=== PATIENT | male | born 1955 | race Caucasian/White ===

== ENCOUNTER 2022-01-04 14:32 | Inpatient (IN) ==
[2022-01-04] MEDS ORDERED: SODIUM CHLORIDE 0.9% 1,000 ML IV STA ×3 (15:17→18:52)
[2022-01-04] MEDS ORDERED: PIPERACILLIN/TAZOBACTAM 3,375 MG in SODIUM CHLORIDE 0.9% 100 ML IV STA (15:20)
[2022-01-04 16:34] LABS: Basophils % 0.3 % (0.0-0.8); Hematocrit 38.5 VOL% (42.0-52.0); Hemoglobin 13.5 GM/DL (14.0-18.0); Immature Granulocytes % 2.4 %; Immature Granulocytes Absolute 0.26 #; Lymphocytes # 0.5 10*3/uL (1.4-4.0); Lymphocytes % 4.8 % (21.2-54.2); Mean Corpuscular HGB Conc 35.1 GM/DL (32-36); Mean Platelet Volume 9.8 FL (9.6-12.0); Monocytes # 0.5 10*3/uL (0.11-0.8); Monocytes % 4.9 % (1.7-12.7); Neutrophils % 87.6 % (38.7-73.9); Platelet Count 276 T/CUMM (130-400); Red Blood Count 4.53 MC/CUMM (3.8-5.5); Red Cell Distribution Width 12.5 % (9.3-17.3)
[2022-01-04 16:55] LABS: Alanine Aminotransferase 20 U/L (16-61); Albumin 2.2 G/DL (3.4-5.0); Alkaline Phosphatase 149 U/L (45-117); Aspartate Amino Transferase 19 U/L (0-37); Blood Urea Nitrogen 8 MG/DL (7-18); Calcium 8.1 MG/DL (8.5-10.1); Carbon Dioxide 21 MMOL/L (21-32); Chloride 92 MMOL/L (98-107); Glucose 464 MG/DL (74-106); Osmolality,Calculated 275.9 MOS/KG (273-304); Potassium 2.7 MMOL/L (3.5-5.1); Sodium 129 MMOL/L (136-145); Total Protein 7.8 G/DL (6.4-8.2)
[2022-01-04 16:56] LABS: Band Neutrophils 11 % (0-10); Lymphocytes 7 % (20-55); Platelet Estimate Normal; Total Cells Counted 100
[2022-01-04 17:21] LABS: Mucus,Urine Occasional /LPF (Occasional); RBC,Urine 1 /HPF (0-4)
[2022-01-04 17:23] LABS: Urine Appearance Clear (Clear); Urine Color Yellow (Yellow)
[2022-01-04 17:24] LABS: Bilirubin,Urine Negative (Negative); Blood, Urine Moderate mg/dL (Negative); Glucose,Urine (UA) >1000 mg/dL (Negative); Ketones,Urine 40 mg/dL (Negative); Nitrite,Urine Negative (Negative); Protein,Urine Negative (Negative)
[2022-01-04 17:29] LABS: Barbiturates Screen,Urine Negative (Negative); Benzodiazepines Screen,Urine Negative (Negative); Cannabinoid Screen,Urine Negative (Negative); Opiate Screen,Urine Negative (Negative); Phencyclidine Screen,Urine Negative (Negative)
[2022-01-04] MEDS ORDERED: INSULIN REGULAR 100 UNIT/ML IV STA ×2 (17:42→18:53)
[2022-01-04 18:03] LABS: Arterial Base Excess iSTAT 0 MMOL/L (-2.5-2.5); Arterial Bicarbonate iSTAT 22.1 MMOL/L (20-26); Arterial O2 Saturation iSTAT 95 % (95-100); Arterial PCO2 iSTAT 29 MM HG (35-48); Arterial PO2 iSTAT 68 MM HG (80-95); Arterial Total CO2 iSTAT 23 MMO/L (23-27); Arterial pH iSTAT 7.497 (7.35-7.45)
[2022-01-04] MEDS ORDERED: POTASSIUM CHLORIDE 20 MEQ TABLET PO STA (18:13)
[2022-01-04] MEDS ORDERED: GLUCAGON 1 MG VIAL IM PRN ×3 (18:16→21:26)
[2022-01-04] MEDS ORDERED: DEXTROSE 50% 25 GM/50 ML VIAL IV PRN (18:16)
[2022-01-04] MEDS ORDERED: DEXTROSE 10% 250 ML BAG IV PRN ×2 (18:32→21:31)
[2022-01-04] MEDS: POTASSIUM CHLORIDE RIDER 10 MEQ/100 ML PREMIX IV PRN ×2 (19:58→22:58)
[2022-01-04] MEDS ORDERED: hydrALAZINE 20 MG/1 ML VIAL IV PRN (21:26)
[2022-01-04] MEDS ORDERED: ONDANSETRON 4 MG/2 ML VIAL IV PRN (21:26)
[2022-01-04] MEDS ORDERED: NICOTINE 21 MG/24 HR PATCH TRANSDERM PRN (21:26)
[2022-01-04] MEDS ORDERED: guaiFENesin/DM ER 600-30 MG TABLET PO PRN (21:26)
[2022-01-04] MEDS ORDERED: diphenhydrAMINE CAP 25 MG CAPSULE PO PRN (21:26)
[2022-01-04] MEDS: INSULIN REGULAR 100 UNIT/ML SUBCUT SCH ×2 (21:28→22:58)
[2022-01-05] MEDS: ZALEPLON 5 MG CAPSULE PO PRN (00:33)
[2022-01-05] MEDS: POTASSIUM CHLORIDE RIDER 10 MEQ/100 ML PREMIX IV PRN ×3 (00:33→04:10)
[2022-01-05] MEDS: PIPERACILLIN/TAZOBACTAM 3,375 MG in SODIUM CHLORIDE 0.9% 100 ML IV SCH ×4 (00:38→23:01)
[2022-01-05] MEDS ORDERED: VANCOMYCIN INJ 1,500 MG in SODIUM CHLORIDE 0.9% 250 ML IV SCH (01:00)
[2022-01-05] MEDS: INSULIN REGULAR 100 UNIT/ML SUBCUT SCH ×6 (02:32→23:04)
[2022-01-05] MEDS: VANCOMYCIN INJ 1,500 MG in SODIUM CHLORIDE 0.9% 500 ML IV SCH ×2 (04:11→15:10)
[2022-01-05 06:04] LABS: Basophils # 0.1 10*3/uL (0.0-0.2); Basophils % 0.6 % (0.0-0.8); Hematocrit 35.2 VOL% (42.0-52.0); Immature Granulocytes % 0.4 %; Immature Granulocytes Absolute 0.04 #; Lymphocytes # 0.6 10*3/uL (1.4-4.0); Lymphocytes % 6.3 % (21.2-54.2); Mean Corpuscular HGB Conc 34.1 GM/DL (32-36); Mean Corpuscular Volume 88.2 FL (87-102); Mean Platelet Volume 9.8 FL (9.6-12.0); Monocytes # 0.4 10*3/uL (0.11-0.8); Monocytes % 4.7 % (1.7-12.7); Platelet Count 245 T/CUMM (130-400); Red Blood Count 3.99 MC/CUMM (3.8-5.5); Red Cell Distribution Width 12.8 % (9.3-17.3)
[2022-01-05 06:27] LABS: Band Neutrophils 13 % (0-10); Lymphocytes 4 % (20-55); Total Cells Counted 100
[2022-01-05 06:29] LABS: Platelet Estimate Normal
[2022-01-05 06:30] LABS: Calcium 7.8 MG/DL (8.5-10.1); Osmolality,Calculated 278.5 MOS/KG (273-304); Risk Ratio 2.75; Thyroid Stimulating Hormone 0.454 uIU/ml (0.358-3.74); VLDL Cholesterol 15.8 MG/DL
[2022-01-05] MEDS: POTASSIUM CHLORIDE 20 MEQ TABLET PO SCH (09:00)
[2022-01-05] MEDS ORDERED: INSULIN GLARGINE 100 UNIT/ML SUBCUT SCH (09:00)
[2022-01-05] MEDS ORDERED: fentaNYL 100 MCG/2 ML VIAL ONE ×3 (09:02→10:31)
[2022-01-05] MEDS ORDERED: propofoL 200 MG/20 ML VIAL IV ONE (09:02)
[2022-01-05] MEDS ORDERED: LIDOCAINE 2% 5 ML VIAL ONE (09:02)
[2022-01-05] MEDS ORDERED: ONDANSETRON 4 MG/2 ML VIAL ONE (09:02)
[2022-01-05] MEDS ORDERED: SEVOFLURANE 1 UNIT/15 MINUTE INH ONE (09:02)
[2022-01-05] MEDS ORDERED: MIDAZOLAM 2 MG/2 ML VIAL ONE (09:02)
[2022-01-05] MEDS ORDERED: LACTATED RINGERS 1,000 ML IV SCH (09:30)
[2022-01-05] MEDS ORDERED: PHENYLEPHRINE 1 MG/10 ML SYRINGE IV ONE ×3 (09:45→10:19)
[2022-01-05] MEDS ORDERED: ePHEDrine 50 MG/ML VIAL ONE (10:02)
[2022-01-05] MEDS ORDERED: SODIUM CHLORIDE 0.9% 1,000 ML IV ONE (10:48)
[2022-01-05] MEDS ORDERED: DEXTROSE 50% 25 GM/50 ML VIAL IV PRN (10:54)
[2022-01-05] MEDS ORDERED: KETOROLAC 15 MG/1 ML VIAL IV PRN (10:54)
[2022-01-05] MEDS ORDERED: diphenhydrAMINE 50 MG/1 ML VIAL IV PRN (11:01)
[2022-01-05] MEDS ORDERED: ONDANSETRON 4 MG/2 ML VIAL IV PRN (11:01)
[2022-01-05] MEDS ORDERED: PROMETHAZINE INJ 25 MG in SODIUM CHLORIDE 0.9% 50 ML IV PRN (11:01)
[2022-01-05] MEDS ORDERED: HYDROmorphone 1 MG/1 ML SYRINGE IV PRN (11:01)
[2022-01-05 11:11] LABS: RBC,Urine 1 /HPF (0-4)
[2022-01-05 11:12] LABS: Bilirubin,Urine Negative (Negative); Blood, Urine Trace mg/dL (Negative); Glucose,Urine (UA) 250 mg/dL (Negative); Ketones,Urine 40 mg/dL (Negative); Nitrite,Urine Negative (Negative); Protein,Urine 30 mg/dL (Negative); Urine Appearance Clear (Clear); Urine Color Yellow (Yellow); Urine pH 6.5 (4.5-8.0)
[2022-01-05] MEDS ORDERED: PROMETHAZINE 25 MG/1 ML VIAL ONE (11:18)
[2022-01-05] MEDS ORDERED: SODIUM CHLORIDE 0.9% 100 ML IV ONE (11:18)
[2022-01-05] MEDS: HYDROmorphone 1 MG/1 ML SYRINGE IV PRN ×2 (11:20→11:25)
[2022-01-05] MEDS ORDERED: POTASSIUM CHLORIDE 20 MEQ TABLET PO ONE (12:00)
[2022-01-05] MEDS: BISACODYL 5 MG TABLET PO SCH (16:18)
[2022-01-05] MEDS: LACTATED RINGERS 1,000 ML IV SCH (16:18)
[2022-01-05] MEDS: PANTOPRAZOLE 40 MG TABLET PO SCH (16:18)
[2022-01-05] MEDS: metFORMIN 500 MG TABLET PO SCH (16:58)
[2022-01-05 18:37] LABS: Bilirubin,Urine Negative (Negative); Blood, Urine Trace mg/dL (Negative); Glucose,Urine (UA) 100 mg/dL (Negative); Ketones,Urine Trace mg/dL (Negative); Nitrite,Urine Negative (Negative); Protein,Urine Negative (Negative); Urine Appearance Clear (Clear); Urine Color Yellow (Yellow); Urine Specific Gravity 1.005 (1.001-1.035); Urine pH 6.5 (4.5-8.0)
[2022-01-05 18:46] LABS: Bacteria,Urine Occasional /HPF (Few); Mucus,Urine Occasional /LPF (Occasional); RBC,Urine 5 /HPF (0-4)
[2022-01-06] MEDS: LACTATED RINGERS 1,000 ML IV SCH ×4 (01:43→23:13)
[2022-01-06] MEDS: VANCOMYCIN INJ 1,500 MG in SODIUM CHLORIDE 0.9% 500 ML IV SCH ×2 (01:44→14:17)
[2022-01-06] MEDS: INSULIN REGULAR 100 UNIT/ML SUBCUT SCH ×5 (02:50→20:45)
[2022-01-06 06:31] LABS: Basophils % 0.2 % (0.0-0.8); Eosinophils % 0.2 % (0.00-10.9); Hematocrit 31.1 VOL% (42.0-52.0); Hemoglobin 10.6 GM/DL (14.0-18.0); Immature Granulocytes % 0.8 %; Immature Granulocytes Absolute 0.08 #; Lymphocytes # 0.7 10*3/uL (1.4-4.0); Lymphocytes % 7.1 % (21.2-54.2); Mean Corpuscular HGB Conc 34.1 GM/DL (32-36); Mean Corpuscular Volume 89.1 FL (87-102); Mean Platelet Volume 9.9 FL (9.6-12.0); Monocytes # 0.3 10*3/uL (0.11-0.8); Monocytes % 3.1 % (1.7-12.7); Neutrophils % 88.6 % (38.7-73.9); Platelet Count 210 T/CUMM (130-400); Red Blood Count 3.49 MC/CUMM (3.8-5.5); Red Cell Distribution Width 13.3 % (9.3-17.3); White Blood Count 9.9 T/CUMM (4-12)
[2022-01-06 06:47] LABS: Osmolality,Calculated 275.8 MOS/KG (273-304); Potassium 2.9 MMOL/L (3.5-5.1)
[2022-01-06 07:00] LABS: Lymphocytes 5 % (20-55); Platelet Estimate Normal; Total Cells Counted 100
[2022-01-06] MEDS ORDERED: POTASSIUM CHLORIDE 20 MEQ TABLET PO ONE ×2 (07:08→10:00)
[2022-01-06] MEDS: POTASSIUM CHLORIDE RIDER 10 MEQ/100 ML PREMIX IV PRN ×3 (07:33→09:46)
[2022-01-06] MEDS ORDERED: ONDANSETRON 4 MG/2 ML VIAL ONE (09:10)
[2022-01-06] MEDS ORDERED: propofoL 200 MG/20 ML VIAL IV ONE (09:10)
[2022-01-06] MEDS ORDERED: MIDAZOLAM 2 MG/2 ML VIAL ONE (09:10)
[2022-01-06] MEDS ORDERED: SEVOFLURANE 1 UNIT/15 MINUTE INH ONE ×3 (09:10→11:10)
[2022-01-06] MEDS ORDERED: LIDOCAINE 2% 5 ML VIAL ONE (09:10)
[2022-01-06] MEDS ORDERED: fentaNYL 100 MCG/2 ML VIAL ONE (09:10)
[2022-01-06] MEDS: POTASSIUM CHLORIDE 20 MEQ TABLET PO SCH (09:30)
[2022-01-06] MEDS: PANTOPRAZOLE 40 MG TABLET PO SCH (09:30)
[2022-01-06] MEDS: BISACODYL 5 MG TABLET PO SCH (09:30)
[2022-01-06] MEDS: INSULIN GLARGINE 100 UNIT/ML SUBCUT SCH ×2 (09:30→14:17)
[2022-01-06] MEDS: PIPERACILLIN/TAZOBACTAM 3,375 MG in SODIUM CHLORIDE 0.9% 100 ML IV SCH ×3 (09:46→23:14)
[2022-01-06] MEDS ORDERED: PHENYLEPHRINE 1 MG/10 ML SYRINGE IV ONE ×4 (10:18→11:10)
[2022-01-06] MEDS: HYDROmorphone 1 MG/1 ML SYRINGE IV PRN ×2 (12:11→17:56)
[2022-01-06] MEDS: metFORMIN 500 MG TABLET PO SCH (16:35)
[2022-01-07] MEDS: VANCOMYCIN INJ 1,500 MG in SODIUM CHLORIDE 0.9% 500 ML IV SCH ×2 (03:26→16:40)
[2022-01-07] MEDS: LACTATED RINGERS 1,000 ML IV SCH ×2 (03:52→12:27)
[2022-01-07] MEDS: HYDROmorphone 1 MG/1 ML SYRINGE IV PRN (03:57)
[2022-01-07 05:29] LABS: Basophils % 0.2 % (0.0-0.8); Eosinophils % 0.2 % (0.00-10.9); Hemoglobin 10.7 GM/DL (14.0-18.0); Lymphocytes # 0.6 10*3/uL (1.4-4.0); Lymphocytes % 6.1 % (21.2-54.2); Mean Corpuscular HGB Conc 33.4 GM/DL (32-36); Mean Corpuscular Volume 89.4 FL (87-102); Mean Platelet Volume 9.7 FL (9.6-12.0); Monocytes # 0.3 10*3/uL (0.11-0.8); Monocytes % 3.1 % (1.7-12.7); Neutrophils % 89.4 % (38.7-73.9); Platelet Count 218 T/CUMM (130-400); Red Blood Count 3.58 MC/CUMM (3.8-5.5); Red Cell Distribution Width 13.3 % (9.3-17.3); White Blood Count 10.5 T/CUMM (4-12)
[2022-01-07 05:47] LABS: Calcium 7.1 MG/DL (8.5-10.1); Osmolality,Calculated 279.5 MOS/KG (273-304); Potassium 3.3 MMOL/L (3.5-5.1)
[2022-01-07 06:28] LABS: Lymphocytes 5 % (20-55); Total Cells Counted 100
[2022-01-07 06:29] LABS: Platelet Estimate Adequate
[2022-01-07] MEDS ORDERED: POTASSIUM CHLORIDE 20 MEQ TABLET PO ONE (07:25)
[2022-01-07] MEDS ORDERED: LIDOCAINE 2% 5 ML VIAL ONE (08:12)
[2022-01-07] MEDS ORDERED: propofoL 200 MG/20 ML VIAL IV ONE (08:12)
[2022-01-07] MEDS ORDERED: SEVOFLURANE 1 UNIT/15 MINUTE INH ONE ×2 (08:12→09:44)
[2022-01-07] MEDS ORDERED: ROCURONIUM 50 MG/5 ML VIAL IV ONE ×2 (08:12→09:23)
[2022-01-07] MEDS ORDERED: KETAMINE 500 MG/10 ML VIAL ONE (08:13)
[2022-01-07] MEDS ORDERED: fentaNYL 100 MCG/2 ML VIAL ONE ×2 (08:13→08:32)
[2022-01-07] MEDS ORDERED: PHENYLEPHRINE 10 MG/1 ML VIAL IV ONE (08:55)
[2022-01-07] MEDS ORDERED: SODIUM CHLORIDE 0.9% 250 ML IV ONE (08:55)
[2022-01-07] MEDS ORDERED: PHENYLEPHRINE 1 MG/10 ML SYRINGE IV ONE (08:55)
[2022-01-07] MEDS ORDERED: ONDANSETRON 4 MG/2 ML VIAL ONE (08:55)
[2022-01-07] MEDS ORDERED: NEOSTIGMINE 10 MG/10 ML VIAL ONE (09:27)
[2022-01-07] MEDS ORDERED: GLYCOPYRROLATE 0.4 MG/2 ML VIAL ONE (09:27)
[2022-01-07] MEDS ORDERED: DEXTROSE 50% 25 GM/50 ML VIAL IV PRN (10:28)
[2022-01-07] MEDS ORDERED: GLUCAGON 1 MG VIAL IM PRN (10:28)
[2022-01-07] MEDS: chlorproMAZINE INJ 25 MG in SODIUM CHLORIDE 0.9% 100 ML IV PRN ×2 (11:51→20:56)
[2022-01-07] MEDS: PANTOPRAZOLE 40 MG TABLET PO SCH (11:52)
[2022-01-07] MEDS: BISACODYL 5 MG TABLET PO SCH (11:52)
[2022-01-07] MEDS: POTASSIUM CHLORIDE 20 MEQ TABLET PO SCH (11:52)
[2022-01-07] MEDS: INSULIN GLARGINE 100 UNIT/ML SUBCUT SCH (11:53)
[2022-01-07] MEDS: PIPERACILLIN/TAZOBACTAM 3,375 MG in SODIUM CHLORIDE 0.9% 100 ML IV SCH ×2 (12:22→18:45)
[2022-01-07] MEDS: INSULIN REGULAR 100 UNIT/ML SUBCUT SCH ×4 (12:27→22:57)
[2022-01-07] MEDS: metFORMIN 500 MG TABLET PO SCH (18:31)
[2022-01-08] MEDS: PIPERACILLIN/TAZOBACTAM 3,375 MG in SODIUM CHLORIDE 0.9% 100 ML IV SCH ×4 (00:18→23:00)
[2022-01-08] MEDS: LACTATED RINGERS 1,000 ML IV SCH ×3 (00:22→13:02)
[2022-01-08] MEDS: VANCOMYCIN INJ 1,500 MG in SODIUM CHLORIDE 0.9% 500 ML IV SCH ×2 (03:54→17:08)
[2022-01-08] MEDS ORDERED: LIDOCAINE 2% 5 ML VIAL ONE (06:42)
[2022-01-08] MEDS ORDERED: SEVOFLURANE 1 UNIT/15 MINUTE INH ONE ×2 (06:42→07:59)
[2022-01-08] MEDS ORDERED: propofoL 200 MG/20 ML VIAL IV ONE (06:42)
[2022-01-08] MEDS ORDERED: MIDAZOLAM 2 MG/2 ML VIAL ONE (06:42)
[2022-01-08] MEDS ORDERED: KETAMINE 500 MG/10 ML VIAL ONE (06:42)
[2022-01-08] MEDS ORDERED: HYDROmorphone 1 MG/1 ML SYRINGE ONE (07:27)
[2022-01-08] MEDS ORDERED: SODIUM CHLORIDE 0.9% 1,000 ML IV ONE (07:51)
[2022-01-08] MEDS ORDERED: ONDANSETRON 4 MG/2 ML VIAL ONE (07:59)
[2022-01-08] MEDS ORDERED: DEXTROSE 50% 25 GM/50 ML VIAL IV PRN (09:04)
[2022-01-08] MEDS ORDERED: GLUCAGON 1 MG VIAL IM PRN (09:04)
[2022-01-08] MEDS: PANTOPRAZOLE 40 MG TABLET PO SCH (09:23)
[2022-01-08] MEDS: BISACODYL 5 MG TABLET PO SCH (09:23)
[2022-01-08] MEDS: POTASSIUM CHLORIDE 20 MEQ TABLET PO SCH (09:23)
[2022-01-08] MEDS: INSULIN REGULAR 100 UNIT/ML SUBCUT SCH ×4 (09:24→20:32)
[2022-01-08] MEDS: INSULIN GLARGINE 100 UNIT/ML SUBCUT SCH (09:24)
[2022-01-08] MEDS ORDERED: MAGNESIUM SULF RIDER 4 GM/100 ML PREMIX IV PRN (10:38)
[2022-01-08] MEDS ORDERED: MAGNESIUM SULF RIDER 2 GM/50 ML PREMIX IV PRN (10:38)
[2022-01-08] MEDS: metFORMIN 500 MG TABLET PO SCH (17:57)
[2022-01-08] MEDS: ZALEPLON 5 MG CAPSULE PO PRN (22:42)
[2022-01-09] MEDS: VANCOMYCIN INJ 1,500 MG in SODIUM CHLORIDE 0.9% 500 ML IV SCH ×3 (03:00→21:35)
[2022-01-09 05:14] LABS: Basophils % 0.2 % (0.0-0.8); Eosinophils # 0.1 10*3/uL (0.0-0.87); Eosinophils % 0.8 % (0.00-10.9); Hematocrit 30.3 VOL% (42.0-52.0); Hemoglobin 10.1 GM/DL (14.0-18.0); Immature Granulocytes % 0.9 %; Lymphocytes # 0.8 10*3/uL (1.4-4.0); Lymphocytes % 7.1 % (21.2-54.2); Mean Corpuscular HGB Conc 33.3 GM/DL (32-36); Mean Corpuscular Volume 90.2 FL (87-102); Mean Platelet Volume 9.6 FL (9.6-12.0); Monocytes # 0.4 10*3/uL (0.11-0.8); Monocytes % 3.8 % (1.7-12.7); Neutrophils % 87.2 % (38.7-73.9); Platelet Count 258 T/CUMM (130-400); Red Blood Count 3.36 MC/CUMM (3.8-5.5); Red Cell Distribution Width 13.8 % (9.3-17.3); White Blood Count 10.7 T/CUMM (4-12)
[2022-01-09 06:11] LABS: Calcium 6.7 MG/DL (8.5-10.1); Osmolality,Calculated 282.1 MOS/KG (273-304); Potassium 2.9 MMOL/L (3.5-5.1)
[2022-01-09] MEDS: LACTATED RINGERS 1,000 ML IV SCH ×2 (07:02→20:01)
[2022-01-09] MEDS ORDERED: MAGNESIUM SULF RIDER 2 GM/50 ML PREMIX IV ONE (07:16)
[2022-01-09] MEDS: POTASSIUM CHLORIDE 20 MEQ TABLET PO SCH (08:57)
[2022-01-09] MEDS: BISACODYL 5 MG TABLET PO SCH (08:57)
[2022-01-09] MEDS: PANTOPRAZOLE 40 MG TABLET PO SCH (08:57)
[2022-01-09] MEDS: INSULIN GLARGINE 100 UNIT/ML SUBCUT SCH (08:57)
[2022-01-09] MEDS: INSULIN REGULAR 100 UNIT/ML SUBCUT SCH ×4 (08:57→21:34)
[2022-01-09] MEDS: PIPERACILLIN/TAZOBACTAM 3,375 MG in SODIUM CHLORIDE 0.9% 100 ML IV SCH ×2 (08:58→17:02)
[2022-01-09] MEDS ORDERED: POTASSIUM CHLORIDE 20 MEQ TABLET PO ONE ×2 (11:00→13:00)
[2022-01-09] MEDS: lisinopriL 20 MG TABLET PO SCH (16:20)
[2022-01-09] MEDS: metFORMIN 500 MG TABLET PO SCH (18:13)
[2022-01-09] MEDS: ZALEPLON 5 MG CAPSULE PO PRN (21:34)
[2022-01-10 06:27] LABS: Basophils % 0.2 % (0.0-0.8); Eosinophils # 0.1 10*3/uL (0.0-0.87); Eosinophils % 0.7 % (0.00-10.9); Hematocrit 32.7 VOL% (42.0-52.0); Hemoglobin 10.8 GM/DL (14.0-18.0); Immature Granulocytes % 0.7 %; Immature Granulocytes Absolute 0.07 #; Lymphocytes # 0.8 10*3/uL (1.4-4.0); Lymphocytes % 7.9 % (21.2-54.2); Mean Corpuscular Volume 90.8 FL (87-102); Mean Platelet Volume 9.8 FL (9.6-12.0); Monocytes # 0.5 10*3/uL (0.11-0.8); Monocytes % 4.9 % (1.7-12.7); Neutrophils % 85.6 % (38.7-73.9); Platelet Count 294 T/CUMM (130-400); Red Cell Distribution Width 13.6 % (9.3-17.3); White Blood Count 10.4 T/CUMM (4-12)
[2022-01-10 06:53] LABS: Calcium 7.1 MG/DL (8.5-10.1); Osmolality,Calculated 284.1 MOS/KG (273-304); Potassium 3.5 MMOL/L (3.5-5.1)
[2022-01-10 06:58] LABS: Albumin 1.3 G/DL (3.4-5.0); Bilirubin,Total 0.5 MG/DL (0.20-1.00); Calcium 7.8 MG/DL (8.5-10.1); Osmolality,Calculated 284.1 MOS/KG (273-304); Potassium 3.4 MMOL/L (3.5-5.1); Total Protein 5.9 G/DL (6.4-8.2)
[2022-01-10] MEDS: INSULIN REGULAR 100 UNIT/ML SUBCUT SCH ×4 (07:17→20:58)
[2022-01-10] MEDS ORDERED: LIDOCAINE 2% 5 ML VIAL ONE (08:27)
[2022-01-10] MEDS ORDERED: SEVOFLURANE 1 UNIT/15 MINUTE INH ONE (08:27)
[2022-01-10] MEDS ORDERED: ONDANSETRON 4 MG/2 ML VIAL ONE (08:27)
[2022-01-10] MEDS ORDERED: MIDAZOLAM 2 MG/2 ML VIAL ONE (08:27)
[2022-01-10] MEDS ORDERED: propofoL 200 MG/20 ML VIAL IV ONE (08:27)
[2022-01-10] MEDS ORDERED: fentaNYL 100 MCG/2 ML VIAL ONE ×2 (08:27→09:14)
[2022-01-10] MEDS ORDERED: PHENYLEPHRINE 1 MG/10 ML SYRINGE IV ONE (09:25)
[2022-01-10] MEDS ORDERED: HYDROmorphone 1 MG/1 ML SYRINGE IV PRN (09:57)
[2022-01-10] MEDS: PIPERACILLIN/TAZOBACTAM 3,375 MG in SODIUM CHLORIDE 0.9% 100 ML IV SCH ×4 (11:28→23:18)
[2022-01-10] MEDS: BISACODYL 5 MG TABLET PO SCH (11:28)
[2022-01-10] MEDS: PANTOPRAZOLE 40 MG TABLET PO SCH (11:29)
[2022-01-10] MEDS: INSULIN GLARGINE 100 UNIT/ML SUBCUT SCH (11:29)
[2022-01-10] MEDS: POTASSIUM CHLORIDE 20 MEQ TABLET PO SCH (11:29)
[2022-01-10] MEDS: lisinopriL 20 MG TABLET PO SCH (11:29)
[2022-01-10] MEDS: VANCOMYCIN INJ 1,500 MG in SODIUM CHLORIDE 0.9% 500 ML IV SCH (15:51)
[2022-01-10] MEDS: metFORMIN 500 MG TABLET PO SCH (17:19)
[2022-01-10] MEDS: ZALEPLON 5 MG CAPSULE PO PRN (20:57)
[2022-01-11 05:03] LABS: Basophils % 0.1 % (0.0-0.8); Eosinophils # 0.1 10*3/uL (0.0-0.87); Eosinophils % 0.7 % (0.00-10.9); Hematocrit 30.1 VOL% (42.0-52.0); Immature Granulocytes % 0.7 %; Immature Granulocytes Absolute 0.08 #; Lymphocytes % 9.7 % (21.2-54.2); Mean Corpuscular HGB Conc 33.2 GM/DL (32-36); Mean Corpuscular Volume 89.6 FL (87-102); Mean Platelet Volume 9.4 FL (9.6-12.0); Monocytes # 0.6 10*3/uL (0.11-0.8); Monocytes % 5.4 % (1.7-12.7); Neutrophils % 83.4 % (38.7-73.9); Platelet Count 334 T/CUMM (130-400); Red Blood Count 3.36 MC/CUMM (3.8-5.5); Red Cell Distribution Width 13.6 % (9.3-17.3); White Blood Count 10.7 T/CUMM (4-12)
[2022-01-11 05:20] LABS: Albumin 1.3 G/DL (3.4-5.0); Bilirubin,Total 0.5 MG/DL (0.20-1.00); Calcium 6.9 MG/DL (8.5-10.1); Osmolality,Calculated 280.3 MOS/KG (273-304); Total Protein 5.9 G/DL (6.4-8.2)
[2022-01-11] MEDS: INSULIN REGULAR 100 UNIT/ML SUBCUT SCH ×4 (07:25→21:23)
[2022-01-11] MEDS ORDERED: MORPHINE 2 MG/1 ML SYRINGE IV ONE ×2 (07:58→08:35)
[2022-01-11] MEDS: SODIUM HYPOCHLORITE 0.25% IRRIG 473 ML BOTTLE TOP SCH (09:05)
[2022-01-11] MEDS: POTASSIUM CHLORIDE 20 MEQ TABLET PO SCH (09:59)
[2022-01-11] MEDS: PIPERACILLIN/TAZOBACTAM 3,375 MG in SODIUM CHLORIDE 0.9% 100 ML IV SCH ×3 (09:59→23:52)
[2022-01-11] MEDS: PANTOPRAZOLE 40 MG TABLET PO SCH (09:59)
[2022-01-11] MEDS: BISACODYL 5 MG TABLET PO SCH (09:59)
[2022-01-11] MEDS: INSULIN GLARGINE 100 UNIT/ML SUBCUT SCH (10:00)
[2022-01-11] MEDS: lisinopriL 20 MG TABLET PO SCH (10:00)
[2022-01-11] MEDS: VANCOMYCIN INJ 1,500 MG in SODIUM CHLORIDE 0.9% 500 ML IV SCH (10:01)
[2022-01-11] MEDS: HYDROmorphone 1 MG/1 ML SYRINGE IV PRN ×3 (14:15→22:42)
[2022-01-11] MEDS: OXYBUTYNIN 5 MG TABLET PO SCH ×2 (16:42→20:03)
[2022-01-11] MEDS: metFORMIN 500 MG TABLET PO SCH (16:43)
[2022-01-11] MEDS: ZALEPLON 5 MG CAPSULE PO PRN (20:03)
[2022-01-11 21:05] LABS: RBC,Urine 1 /HPF (0-4)
[2022-01-11 21:07] LABS: Bilirubin,Urine Negative (Negative); Blood, Urine Trace mg/dL (Negative); Glucose,Urine (UA) Negative (Negative); Ketones,Urine Negative (Negative); Nitrite,Urine Negative (Negative); Protein,Urine Negative (Negative); Urine Appearance Clear (Clear); Urine Color Yellow (Yellow); Urine Specific Gravity <= 1.005 (1.001-1.035); Urine Urobilinogen 0.2 eU/dL (<2.0); Urine pH 6.5 (4.5-8.0)
[2022-01-12] MEDS: HYDROmorphone 1 MG/1 ML SYRINGE IV PRN ×6 (00:55→23:35)
[2022-01-12 04:12] LABS: Basophils % 0.2 % (0.0-0.8); Eosinophils % 0.3 % (0.00-10.9); Hemoglobin 11.2 GM/DL (14.0-18.0); Immature Granulocytes % 0.8 %; Immature Granulocytes Absolute 0.09 #; Lymphocytes # 0.9 10*3/uL (1.4-4.0); Lymphocytes % 7.6 % (21.2-54.2); Mean Corpuscular HGB Conc 32.9 GM/DL (32-36); Mean Corpuscular Volume 89.7 FL (87-102); Mean Platelet Volume 9.2 FL (9.6-12.0); Monocytes # 0.6 10*3/uL (0.11-0.8); Monocytes % 5.3 % (1.7-12.7); Neutrophils % 85.8 % (38.7-73.9); Platelet Count 410 T/CUMM (130-400); Red Blood Count 3.79 MC/CUMM (3.8-5.5); Red Cell Distribution Width 13.7 % (9.3-17.3)
[2022-01-12 04:35] LABS: Osmolality,Calculated 280.4 MOS/KG (273-304); Potassium 3.2 MMOL/L (3.5-5.1)
[2022-01-12] MEDS: INSULIN GLARGINE 100 UNIT/ML SUBCUT SCH (08:27)
[2022-01-12] MEDS: PANTOPRAZOLE 40 MG TABLET PO SCH (08:27)
[2022-01-12] MEDS: lisinopriL 20 MG TABLET PO SCH (08:27)
[2022-01-12] MEDS: BISACODYL 5 MG TABLET PO SCH (08:27)
[2022-01-12] MEDS: POTASSIUM CHLORIDE 20 MEQ TABLET PO SCH (08:27)
[2022-01-12] MEDS: INSULIN REGULAR 100 UNIT/ML SUBCUT SCH ×4 (09:00→20:20)
[2022-01-12] MEDS ORDERED: PHENAZOPYRIDINE 95 MG TABLET PO PRN (09:04)
[2022-01-12] MEDS: OXYBUTYNIN 5 MG TABLET PO SCH ×2 (09:09→16:34)
[2022-01-12] MEDS: ERGOCALCIFEROL 50,000 UNIT CAPSULE PO SCH (09:09)
[2022-01-12] MEDS: PIPERACILLIN/TAZOBACTAM 3,375 MG in SODIUM CHLORIDE 0.9% 100 ML IV SCH (09:10)
[2022-01-12] MEDS: SODIUM HYPOCHLORITE 0.25% IRRIG 473 ML BOTTLE TOP SCH (09:10)
[2022-01-12] MEDS: METHEN/SOD PHOS/METH BLUE/HYOS TABLET PO SCH ×2 (10:55→16:35)
[2022-01-12] MEDS ORDERED: METHEN/SOD PHOS/METH BLUE/HYOS TABLET PO SCH (13:00)
[2022-01-12] MEDS ORDERED: METHEN/SOD PHOS/METH BLUE/HYOS TABLET PO PRN (13:52)
[2022-01-12] MEDS: metFORMIN 500 MG TABLET PO SCH (17:39)
[2022-01-12] MEDS: ZALEPLON 5 MG CAPSULE PO PRN (19:57)
[2022-01-13 04:00] LABS: Basophils % 0.2 % (0.0-0.8); Eosinophils # 0.1 10*3/uL (0.0-0.87); Eosinophils % 0.7 % (0.00-10.9); Hematocrit 30.1 VOL% (42.0-52.0); Hemoglobin 9.8 GM/DL (14.0-18.0); Immature Granulocytes % 0.6 %; Immature Granulocytes Absolute 0.08 #; Lymphocytes # 1.1 10*3/uL (1.4-4.0); Lymphocytes % 8.8 % (21.2-54.2); Mean Corpuscular HGB Conc 32.6 GM/DL (32-36); Mean Corpuscular Volume 90.1 FL (87-102); Mean Platelet Volume 9.1 FL (9.6-12.0); Monocytes # 0.6 10*3/uL (0.11-0.8); Neutrophils % 84.7 % (38.7-73.9); Platelet Count 419 T/CUMM (130-400); Red Blood Count 3.34 MC/CUMM (3.8-5.5); Red Cell Distribution Width 13.8 % (9.3-17.3); White Blood Count 12.6 T/CUMM (4-12)
[2022-01-13 04:16] LABS: Calcium 6.6 MG/DL (8.5-10.1); Osmolality,Calculated 283.8 MOS/KG (273-304)
[2022-01-13] MEDS: INSULIN REGULAR 100 UNIT/ML SUBCUT SCH ×4 (08:22→22:18)
[2022-01-13] MEDS: BISACODYL 5 MG TABLET PO SCH (08:49)
[2022-01-13] MEDS: lisinopriL 20 MG TABLET PO SCH (08:50)
[2022-01-13] MEDS: POTASSIUM CHLORIDE 20 MEQ TABLET PO SCH (08:50)
[2022-01-13] MEDS: HEPARIN 5,000 UNIT/1 ML VIAL SUBCUT SCH (08:50)
[2022-01-13] MEDS: PANTOPRAZOLE 40 MG TABLET PO SCH (08:50)
[2022-01-13] MEDS: INSULIN GLARGINE 100 UNIT/ML SUBCUT SCH (08:50)
[2022-01-13] MEDS: POTASSIUM CHLORIDE RIDER 10 MEQ/100 ML PREMIX IV PRN (08:54)
[2022-01-13] MEDS: SODIUM HYPOCHLORITE 0.25% IRRIG 473 ML BOTTLE TOP SCH (09:00)
[2022-01-13] MEDS: HYDROmorphone 1 MG/1 ML SYRINGE IV PRN ×4 (09:37→22:18)
[2022-01-13] MEDS: PIPERACILLIN/TAZOBACTAM 3,375 MG in SODIUM CHLORIDE 0.9% 100 ML IV SCH ×2 (12:13→22:19)
[2022-01-13] MEDS ORDERED: TUBERCULIN SKIN TEST 0.1 ML SYRINGE INTRADERM ONE (16:00)
[2022-01-13] MEDS: metFORMIN 500 MG TABLET PO SCH (18:31)
[2022-01-13] MEDS: TRIAMCINOLONE 0.1% CREAM 15 GM TUBE TOP SCH ×2 (18:31→22:18)
[2022-01-13] MEDS: ZALEPLON 5 MG CAPSULE PO PRN (23:54)
[2022-01-14] MEDS: PIPERACILLIN/TAZOBACTAM 3,375 MG in SODIUM CHLORIDE 0.9% 100 ML IV SCH ×3 (04:44→20:57)
[2022-01-14 05:40] LABS: Basophils % 0.3 % (0.0-0.8); Eosinophils # 0.1 10*3/uL (0.0-0.87); Eosinophils % 1.1 % (0.00-10.9); Hematocrit 29.9 VOL% (42.0-52.0); Hemoglobin 9.8 GM/DL (14.0-18.0); Immature Granulocytes % 0.8 %; Immature Granulocytes Absolute 0.09 #; Lymphocytes # 1.2 10*3/uL (1.4-4.0); Lymphocytes % 10.9 % (21.2-54.2); Mean Corpuscular HGB Conc 32.8 GM/DL (32-36); Mean Corpuscular Volume 90.9 FL (87-102); Mean Platelet Volume 8.8 FL (9.6-12.0); Monocytes # 0.7 10*3/uL (0.11-0.8); Neutrophils % 80.9 % (38.7-73.9); Platelet Count 363 T/CUMM (130-400); Red Blood Count 3.29 MC/CUMM (3.8-5.5); Red Cell Distribution Width 13.4 % (9.3-17.3); White Blood Count 11.3 T/CUMM (4-12)
[2022-01-14 06:02] LABS: Alanine Aminotransferase 20 U/L (16-61); Albumin 1.4 G/DL (3.4-5.0); Alkaline Phosphatase 276 U/L (45-117); Aspartate Amino Transferase 31 U/L (0-37); Bilirubin,Total < 0.39 MG/DL (0.20-1.00); Blood Urea Nitrogen 8 MG/DL (7-18); Calcium 6.9 MG/DL (8.5-10.1); Carbon Dioxide 25 MMOL/L (21-32); Chloride 109 MMOL/L (98-107); Glucose 138 MG/DL (74-106); Osmolality,Calculated 278.4 MOS/KG (273-304); Potassium 3.2 MMOL/L (3.5-5.1); Sodium 140 MMOL/L (136-145)
[2022-01-14] MEDS: POTASSIUM CHLORIDE RIDER 10 MEQ/100 ML PREMIX IV PRN ×4 (06:16→16:39)
[2022-01-14] MEDS ORDERED: fentaNYL 100 MCG/2 ML VIAL ONE ×2 (07:27→08:19)
[2022-01-14] MEDS ORDERED: propofoL 200 MG/20 ML VIAL IV ONE (07:27)
[2022-01-14] MEDS: INSULIN REGULAR 100 UNIT/ML SUBCUT SCH ×4 (07:27→20:44)
[2022-01-14] MEDS ORDERED: LIDOCAINE 2% 5 ML VIAL ONE (07:27)
[2022-01-14] MEDS ORDERED: MIDAZOLAM 2 MG/2 ML VIAL ONE (07:28)
[2022-01-14] MEDS ORDERED: ONDANSETRON 4 MG/2 ML VIAL ONE (08:07)
[2022-01-14] MEDS ORDERED: PHENYLEPHRINE 1 MG/10 ML SYRINGE IV ONE ×2 (08:07→08:29)
[2022-01-14] MEDS ORDERED: KETAMINE 500 MG/10 ML VIAL ONE (08:19)
[2022-01-14] MEDS ORDERED: ePHEDrine 50 MG/ML VIAL ONE (08:20)
[2022-01-14] MEDS ORDERED: SEVOFLURANE 1 UNIT/15 MINUTE INH ONE (08:24)
[2022-01-14] MEDS: HYDROmorphone 1 MG/1 ML SYRINGE IV PRN ×6 (09:10→20:49)
[2022-01-14] MEDS ORDERED: ONDANSETRON 4 MG/2 ML VIAL IV PRN (09:21)
[2022-01-14] MEDS: INSULIN GLARGINE 100 UNIT/ML SUBCUT SCH (09:49)
[2022-01-14] MEDS: TRIAMCINOLONE 0.1% CREAM 15 GM TUBE TOP SCH ×2 (10:03→20:45)
[2022-01-14] MEDS: SODIUM HYPOCHLORITE 0.25% IRRIG 473 ML BOTTLE TOP SCH (10:03)
[2022-01-14] MEDS: lisinopriL 20 MG TABLET PO SCH (11:16)
[2022-01-14] MEDS: BISACODYL 5 MG TABLET PO SCH (11:17)
[2022-01-14] MEDS: PANTOPRAZOLE 40 MG TABLET PO SCH (11:17)
[2022-01-14] MEDS: POTASSIUM CHLORIDE 20 MEQ TABLET PO SCH (12:29)
[2022-01-14] MEDS: metFORMIN 500 MG TABLET PO SCH (16:12)
[2022-01-14] MEDS: ZALEPLON 5 MG CAPSULE PO PRN (20:45)
[2022-01-14] MEDS: POTASSIUM BICARB EFFERVESCENT 20 MEQ TAB.EFF PO SCH (20:45)
[2022-01-14] MEDS: SERTRALINE 50 MG TABLET PO SCH (20:45)
[2022-01-15] MEDS: HYDROmorphone 1 MG/1 ML SYRINGE IV PRN ×7 (02:29→23:18)
[2022-01-15] MEDS: PIPERACILLIN/TAZOBACTAM 3,375 MG in SODIUM CHLORIDE 0.9% 100 ML IV SCH ×3 (04:46→20:39)
[2022-01-15 05:25] LABS: Basophils % 0.3 % (0.0-0.8); Eosinophils # 0.1 10*3/uL (0.0-0.87); Eosinophils % 0.7 % (0.00-10.9); Hemoglobin 9.4 GM/DL (14.0-18.0); Immature Granulocytes % 0.7 %; Immature Granulocytes Absolute 0.08 #; Lymphocytes # 1.1 10*3/uL (1.4-4.0); Lymphocytes % 9.6 % (21.2-54.2); Mean Corpuscular HGB Conc 32.4 GM/DL (32-36); Mean Corpuscular Volume 91.2 FL (87-102); Monocytes # 0.7 10*3/uL (0.11-0.8); Monocytes % 6.2 % (1.7-12.7); Neutrophils % 82.5 % (38.7-73.9); Platelet Count 381 T/CUMM (130-400); Red Blood Count 3.18 MC/CUMM (3.8-5.5); Red Cell Distribution Width 13.2 % (9.3-17.3); White Blood Count 11.4 T/CUMM (4-12)
[2022-01-15 05:41] LABS: Calcium 6.9 MG/DL (8.5-10.1); Osmolality,Calculated 283.3 MOS/KG (273-304); Potassium 3.7 MMOL/L (3.5-5.1)
[2022-01-15] MEDS: INSULIN REGULAR 100 UNIT/ML SUBCUT SCH ×4 (07:58→20:39)
[2022-01-15] MEDS: POTASSIUM BICARB EFFERVESCENT 20 MEQ TAB.EFF PO SCH ×2 (09:13→20:13)
[2022-01-15] MEDS: MAGNESIUM OXIDE 400 MG TABLET PO SCH ×2 (09:13→20:14)
[2022-01-15] MEDS: PANTOPRAZOLE 40 MG TABLET PO SCH (09:13)
[2022-01-15] MEDS: lisinopriL 20 MG TABLET PO SCH (09:13)
[2022-01-15] MEDS: SODIUM HYPOCHLORITE 0.25% IRRIG 473 ML BOTTLE TOP SCH (09:14)
[2022-01-15] MEDS: ACETAMINOPHEN 325 MG TABLET PO PRN (09:14)
[2022-01-15] MEDS: BISACODYL 5 MG TABLET PO SCH (09:14)
[2022-01-15] MEDS: TRIAMCINOLONE 0.1% CREAM 15 GM TUBE TOP SCH ×2 (09:15→20:39)
[2022-01-15] MEDS: INSULIN GLARGINE 100 UNIT/ML SUBCUT SCH (09:16)
[2022-01-15] MEDS: HEPARIN 5,000 UNIT/1 ML VIAL SUBCUT SCH ×2 (09:26→20:16)
[2022-01-15] MEDS: metFORMIN 500 MG TABLET PO SCH (16:51)
[2022-01-15] MEDS: ZALEPLON 5 MG CAPSULE PO PRN (20:14)
[2022-01-15] MEDS: SERTRALINE 50 MG TABLET PO SCH (20:39)
[2022-01-16] MEDS: HYDROmorphone 1 MG/1 ML SYRINGE IV PRN ×9 (01:55→23:50)
[2022-01-16] MEDS: PIPERACILLIN/TAZOBACTAM 3,375 MG in SODIUM CHLORIDE 0.9% 100 ML IV SCH ×3 (04:14→21:08)
[2022-01-16 06:28] LABS: Calcium 7.4 MG/DL (8.5-10.1); Osmolality,Calculated 285.1 MOS/KG (273-304); Potassium 3.8 MMOL/L (3.5-5.1)
[2022-01-16] MEDS: INSULIN REGULAR 100 UNIT/ML SUBCUT SCH ×4 (09:44→21:08)
[2022-01-16] MEDS: SODIUM HYPOCHLORITE 0.25% IRRIG 473 ML BOTTLE TOP SCH (09:45)
[2022-01-16] MEDS: diphenhydrAMINE CAP 25 MG CAPSULE PO PRN ×2 (09:58→21:02)
[2022-01-16] MEDS: PANTOPRAZOLE 40 MG TABLET PO SCH (09:58)
[2022-01-16] MEDS: POTASSIUM BICARB EFFERVESCENT 20 MEQ TAB.EFF PO SCH ×2 (09:58→21:08)
[2022-01-16] MEDS: MAGNESIUM OXIDE 400 MG TABLET PO SCH ×2 (09:59→21:02)
[2022-01-16] MEDS: lisinopriL 20 MG TABLET PO SCH (09:59)
[2022-01-16] MEDS: ACETAMINOPHEN 325 MG TABLET PO PRN (10:00)
[2022-01-16] MEDS: HEPARIN 5,000 UNIT/1 ML VIAL SUBCUT SCH ×2 (10:01→21:02)
[2022-01-16] MEDS: BISACODYL 5 MG TABLET PO SCH (10:01)
[2022-01-16] MEDS: TRIAMCINOLONE 0.1% CREAM 15 GM TUBE TOP SCH ×3 (10:18→23:51)
[2022-01-16] MEDS: METOPROLOL TARTRATE 25 MG TABLET PO SCH ×2 (10:19→21:08)
[2022-01-16] MEDS ORDERED: NALOXONE 0.4 MG/ML VIAL IV PRN (10:28)
[2022-01-16] MEDS: fentaNYL 50 MCG/HR PATCH TRANSDERM SCH (14:18)
[2022-01-16] MEDS: metFORMIN 500 MG TABLET PO SCH (16:54)
[2022-01-16] MEDS: OXYBUTYNIN 5 MG TABLET PO PRN (18:16)
[2022-01-16] MEDS: SERTRALINE 50 MG TABLET PO SCH (21:02)
[2022-01-16] MEDS: MELATONIN 3 MG TABLET PO PRN (21:02)
[2022-01-16] MEDS: ZALEPLON 5 MG CAPSULE PO PRN (21:03)
[2022-01-17] MEDS: HYDROmorphone 1 MG/1 ML SYRINGE IV PRN ×3 (02:21→09:20)
[2022-01-17] MEDS: OXYBUTYNIN 5 MG TABLET PO PRN (02:22)
[2022-01-17] MEDS: PIPERACILLIN/TAZOBACTAM 3,375 MG in SODIUM CHLORIDE 0.9% 100 ML IV SCH (04:26)
[2022-01-17 06:10] LABS: Basophils % 0.3 % (0.0-0.8); Eosinophils # 0.1 10*3/uL (0.0-0.87); Eosinophils % 0.9 % (0.00-10.9); Hematocrit 28.7 VOL% (42.0-52.0); Hemoglobin 9.3 GM/DL (14.0-18.0); Immature Granulocytes Absolute 0.12 #; Lymphocytes # 1.2 10*3/uL (1.4-4.0); Lymphocytes % 9.8 % (21.2-54.2); Mean Corpuscular HGB Conc 32.4 GM/DL (32-36); Mean Corpuscular Volume 91.1 FL (87-102); Mean Platelet Volume 9.8 FL (9.6-12.0); Monocytes # 0.8 10*3/uL (0.11-0.8); Monocytes % 6.5 % (1.7-12.7); Neutrophils % 81.5 % (38.7-73.9); Platelet Count 402 T/CUMM (130-400); Red Blood Count 3.15 MC/CUMM (3.8-5.5); Red Cell Distribution Width 13.5 % (9.3-17.3)
[2022-01-17 06:23] LABS: Calcium 7.6 MG/DL (8.5-10.1); Osmolality,Calculated 280.5 MOS/KG (273-304); Potassium 3.9 MMOL/L (3.5-5.1)
[2022-01-17] MEDS ORDERED: SEVOFLURANE 1 UNIT/15 MINUTE INH ONE ×2 (07:07→07:43)
[2022-01-17] MEDS ORDERED: propofoL 200 MG/20 ML VIAL IV ONE (07:07)
[2022-01-17] MEDS ORDERED: LIDOCAINE 2% 5 ML VIAL ONE (07:07)
[2022-01-17] MEDS ORDERED: fentaNYL 100 MCG/2 ML VIAL ONE (07:08)
[2022-01-17] MEDS ORDERED: MIDAZOLAM 2 MG/2 ML VIAL ONE (07:08)
[2022-01-17] MEDS ORDERED: LACTATED RINGERS 1,000 ML IV SCH (07:30)
[2022-01-17] MEDS ORDERED: PHENYLEPHRINE 1 MG/10 ML SYRINGE IV ONE (07:43)
[2022-01-17] MEDS ORDERED: DEXTROSE 50% 25 GM/50 ML VIAL IV PRN (08:41)
[2022-01-17] MEDS ORDERED: GLUCAGON 1 MG VIAL IM PRN (08:41)
[2022-01-17] MEDS: INSULIN GLARGINE 100 UNIT/ML SUBCUT SCH ×2 (09:01→10:42)
[2022-01-17] MEDS: METOPROLOL TARTRATE 25 MG TABLET PO SCH ×2 (10:42→21:50)
[2022-01-17] MEDS: POTASSIUM BICARB EFFERVESCENT 20 MEQ TAB.EFF PO SCH ×2 (10:42→21:50)
[2022-01-17] MEDS: PANTOPRAZOLE 40 MG TABLET PO SCH (10:42)
[2022-01-17] MEDS: lisinopriL 20 MG TABLET PO SCH (10:42)
[2022-01-17] MEDS: MAGNESIUM OXIDE 400 MG TABLET PO SCH ×2 (10:42→21:51)
[2022-01-17] MEDS: BISACODYL 5 MG TABLET PO SCH (10:42)
[2022-01-17] MEDS: INSULIN REGULAR 100 UNIT/ML SUBCUT SCH ×4 (10:42→21:51)
[2022-01-17] MEDS: HEPARIN 5,000 UNIT/1 ML VIAL SUBCUT SCH ×2 (10:43→21:54)
[2022-01-17] MEDS: cefTRIAXone 1,000 MG in SODIUM CHLORIDE 0.9% 100 ML IV SCH (10:43)
[2022-01-17] MEDS: SODIUM HYPOCHLORITE 0.25% IRRIG 473 ML BOTTLE TOP SCH (10:44)
[2022-01-17] MEDS: TRIAMCINOLONE 0.1% CREAM 15 GM TUBE TOP SCH ×2 (14:01→21:53)
[2022-01-17] MEDS: metFORMIN 500 MG TABLET PO SCH (17:23)
[2022-01-17] MEDS: ZALEPLON 5 MG CAPSULE PO PRN (21:49)
[2022-01-17] MEDS: SERTRALINE 50 MG TABLET PO SCH (21:50)
[2022-01-18 06:26] LABS: Basophils # 0.1 10*3/uL (0.0-0.2); Basophils % 0.5 % (0.0-0.8); Eosinophils # 0.1 10*3/uL (0.0-0.87); Eosinophils % 1.1 % (0.00-10.9); Hematocrit 29.4 VOL% (42.0-52.0); Hemoglobin 9.5 GM/DL (14.0-18.0); Immature Granulocytes % 0.8 %; Immature Granulocytes Absolute 0.09 #; Lymphocytes # 1.3 10*3/uL (1.4-4.0); Mean Corpuscular HGB Conc 32.3 GM/DL (32-36); Mean Corpuscular Volume 92.7 FL (87-102); Mean Platelet Volume 8.9 FL (9.6-12.0); Monocytes # 0.7 10*3/uL (0.11-0.8); Monocytes % 6.1 % (1.7-12.7); Neutrophils % 79.5 % (38.7-73.9); Platelet Count 396 T/CUMM (130-400); Red Blood Count 3.17 MC/CUMM (3.8-5.5); Red Cell Distribution Width 13.4 % (9.3-17.3); White Blood Count 10.6 T/CUMM (4-12)
[2022-01-18 06:38] LABS: Calcium 7.4 MG/DL (8.5-10.1); Osmolality,Calculated 281.4 MOS/KG (273-304); Potassium 4.8 MMOL/L (3.5-5.1)
[2022-01-18] MEDS ORDERED: LIDOCAINE 1%/EPI INJ 20 ML VIAL ONE (08:29)
[2022-01-18] MEDS ORDERED: LIDOCAINE 2% 5 ML VIAL ONE (08:30)
[2022-01-18] MEDS ORDERED: MIDAZOLAM 2 MG/2 ML VIAL ONE (08:30)
[2022-01-18] MEDS ORDERED: propofoL 200 MG/20 ML VIAL IV ONE (08:30)
[2022-01-18] MEDS ORDERED: fentaNYL 100 MCG/2 ML VIAL ONE (08:30)
[2022-01-18] MEDS ORDERED: SEVOFLURANE 1 UNIT/15 MINUTE INH ONE ×2 (08:56→09:04)
[2022-01-18] MEDS ORDERED: PHENYLEPHRINE 1 MG/10 ML SYRINGE IV ONE ×2 (08:56→09:07)
[2022-01-18] MEDS ORDERED: ONDANSETRON 4 MG/2 ML VIAL ONE (08:59)
[2022-01-18] MEDS ORDERED: GLUCAGON 1 MG VIAL IM PRN (09:59)
[2022-01-18] MEDS ORDERED: DEXTROSE 10% 250 ML BAG IV PRN (10:01)
[2022-01-18] MEDS: PANTOPRAZOLE 40 MG TABLET PO SCH (10:34)
[2022-01-18] MEDS: POTASSIUM BICARB EFFERVESCENT 20 MEQ TAB.EFF PO SCH ×2 (10:34→22:26)
[2022-01-18] MEDS: BISACODYL 5 MG TABLET PO SCH (10:34)
[2022-01-18] MEDS: lisinopriL 20 MG TABLET PO SCH (10:35)
[2022-01-18] MEDS: MAGNESIUM OXIDE 400 MG TABLET PO SCH ×2 (10:35→22:26)
[2022-01-18] MEDS: METOPROLOL TARTRATE 25 MG TABLET PO SCH ×2 (10:35→22:26)
[2022-01-18] MEDS: INSULIN GLARGINE 100 UNIT/ML SUBCUT SCH (10:35)
[2022-01-18] MEDS: INSULIN REGULAR 100 UNIT/ML SUBCUT SCH ×4 (10:35→22:23)
[2022-01-18] MEDS: TRIAMCINOLONE 0.1% CREAM 15 GM TUBE TOP SCH ×2 (10:36→22:28)
[2022-01-18] MEDS: HEPARIN 5,000 UNIT/1 ML VIAL SUBCUT SCH ×2 (10:36→22:23)
[2022-01-18] MEDS: SODIUM HYPOCHLORITE 0.25% IRRIG 473 ML BOTTLE TOP SCH (10:36)
[2022-01-18] MEDS: cefTRIAXone 1,000 MG in SODIUM CHLORIDE 0.9% 100 ML IV SCH (10:39)
[2022-01-18] MEDS: HYDROmorphone 1 MG/1 ML SYRINGE IV PRN ×4 (10:39→22:27)
[2022-01-18] MEDS ORDERED: TUBERCULIN SKIN TEST 0.1 ML SYRINGE INTRADERM ONE (17:30)
[2022-01-18] MEDS: metFORMIN 500 MG TABLET PO SCH (18:04)
[2022-01-18] MEDS: SERTRALINE 50 MG TABLET PO SCH (22:26)
[2022-01-19] MEDS: OXYBUTYNIN 5 MG TABLET PO PRN ×2 (00:30→13:13)
[2022-01-19 04:30] LABS: Basophils % 0.4 % (0.0-0.8); Eosinophils # 0.1 10*3/uL (0.0-0.87); Hematocrit 27.2 VOL% (42.0-52.0); Hemoglobin 8.7 GM/DL (14.0-18.0); Immature Granulocytes % 0.7 %; Immature Granulocytes Absolute 0.08 #; Lymphocytes # 1.3 10*3/uL (1.4-4.0); Mean Corpuscular Volume 91.3 FL (87-102); Mean Platelet Volume 8.6 FL (9.6-12.0); Monocytes # 0.7 10*3/uL (0.11-0.8); Monocytes % 6.5 % (1.7-12.7); Neutrophils % 79.4 % (38.7-73.9); Platelet Count 344 T/CUMM (130-400); Red Blood Count 2.98 MC/CUMM (3.8-5.5); Red Cell Distribution Width 13.3 % (9.3-17.3)
[2022-01-19 04:46] LABS: Calcium 7.2 MG/DL (8.5-10.1); Osmolality,Calculated 277.8 MOS/KG (273-304)
[2022-01-19] MEDS: ERGOCALCIFEROL 50,000 UNIT CAPSULE PO SCH (07:10)
[2022-01-19] MEDS ORDERED: LACTATED RINGERS 1,000 ML IV SCH (10:00)
[2022-01-19] MEDS ORDERED: propofoL 200 MG/20 ML VIAL IV ONE (10:24)
[2022-01-19] MEDS ORDERED: SEVOFLURANE 1 UNIT/15 MINUTE INH ONE (10:24)
[2022-01-19] MEDS ORDERED: LIDOCAINE 2% 5 ML VIAL ONE (10:24)
[2022-01-19] MEDS ORDERED: MIDAZOLAM 2 MG/2 ML VIAL ONE (10:24)
[2022-01-19] MEDS ORDERED: fentaNYL 100 MCG/2 ML VIAL ONE (10:24)
[2022-01-19] MEDS ORDERED: PHENYLEPHRINE 1 MG/10 ML SYRINGE IV ONE (10:55)
[2022-01-19] MEDS ORDERED: HYDROmorphone 1 MG/1 ML SYRINGE IV PRN (12:14)
[2022-01-19] MEDS: INSULIN REGULAR 100 UNIT/ML SUBCUT SCH ×4 (12:46→20:16)
[2022-01-19] MEDS: METOPROLOL TARTRATE 25 MG TABLET PO SCH ×2 (12:55→20:15)
[2022-01-19] MEDS: POTASSIUM BICARB EFFERVESCENT 20 MEQ TAB.EFF PO SCH ×2 (12:55→20:15)
[2022-01-19] MEDS: fentaNYL 50 MCG/HR PATCH TRANSDERM SCH (12:55)
[2022-01-19] MEDS: MAGNESIUM OXIDE 400 MG TABLET PO SCH ×2 (12:55→20:14)
[2022-01-19] MEDS: BISACODYL 5 MG TABLET PO SCH (12:55)
[2022-01-19] MEDS: lisinopriL 20 MG TABLET PO SCH (12:55)
[2022-01-19] MEDS: PANTOPRAZOLE 40 MG TABLET PO SCH (12:55)
[2022-01-19] MEDS: cefTRIAXone 1,000 MG in SODIUM CHLORIDE 0.9% 100 ML IV SCH (12:55)
[2022-01-19] MEDS: HEPARIN 5,000 UNIT/1 ML VIAL SUBCUT SCH ×2 (12:55→20:16)
[2022-01-19] MEDS: TRIAMCINOLONE 0.1% CREAM 15 GM TUBE TOP SCH ×2 (14:38→20:20)
[2022-01-19] MEDS: SODIUM HYPOCHLORITE 0.25% IRRIG 473 ML BOTTLE TOP SCH (16:08)
[2022-01-19] MEDS: metFORMIN 500 MG TABLET PO SCH (16:34)
[2022-01-19] MEDS: HYDROmorphone 1 MG/1 ML SYRINGE IV PRN ×3 (16:35→22:57)
[2022-01-19] MEDS: SERTRALINE 50 MG TABLET PO SCH (20:14)
[2022-01-19] MEDS: ZALEPLON 5 MG CAPSULE PO PRN (20:15)
[2022-01-20] MEDS: HYDROmorphone 1 MG/1 ML SYRINGE IV PRN ×8 (03:11→23:16)
[2022-01-20 06:45] LABS: Basophils # 0.1 10*3/uL (0.0-0.2); Basophils % 0.5 % (0.0-0.8); Eosinophils # 0.1 10*3/uL (0.0-0.87); Eosinophils % 1.2 % (0.00-10.9); Hematocrit 29.4 VOL% (42.0-52.0); Hemoglobin 9.4 GM/DL (14.0-18.0); Immature Granulocytes % 0.8 %; Immature Granulocytes Absolute 0.08 #; Lymphocytes # 1.5 10*3/uL (1.4-4.0); Lymphocytes % 14.2 % (21.2-54.2); Mean Corpuscular Volume 91.9 FL (87-102); Mean Platelet Volume 8.6 FL (9.6-12.0); Monocytes # 0.6 10*3/uL (0.11-0.8); Monocytes % 5.6 % (1.7-12.7); Neutrophils % 77.7 % (38.7-73.9); Platelet Count 329 T/CUMM (130-400); Red Cell Distribution Width 13.2 % (9.3-17.3); White Blood Count 10.3 T/CUMM (4-12)
[2022-01-20 06:57] LABS: Calcium 7.7 MG/DL (8.5-10.1); Osmolality,Calculated 277.7 MOS/KG (273-304); Potassium 4.1 MMOL/L (3.5-5.1)
[2022-01-20] MEDS: HEPARIN 5,000 UNIT/1 ML VIAL SUBCUT SCH ×2 (09:41→21:23)
[2022-01-20] MEDS: INSULIN GLARGINE 100 UNIT/ML SUBCUT SCH (09:45)
[2022-01-20] MEDS: cefTRIAXone 1,000 MG in SODIUM CHLORIDE 0.9% 100 ML IV SCH (09:45)
[2022-01-20] MEDS: lisinopriL 20 MG TABLET PO SCH (09:45)
[2022-01-20] MEDS: PANTOPRAZOLE 40 MG TABLET PO SCH (09:45)
[2022-01-20] MEDS: BISACODYL 5 MG TABLET PO SCH (09:45)
[2022-01-20] MEDS: POTASSIUM BICARB EFFERVESCENT 20 MEQ TAB.EFF PO SCH ×2 (09:45→21:22)
[2022-01-20] MEDS: METOPROLOL TARTRATE 25 MG TABLET PO SCH ×2 (09:45→21:22)
[2022-01-20] MEDS: MAGNESIUM OXIDE 400 MG TABLET PO SCH ×2 (09:45→21:22)
[2022-01-20] MEDS: metFORMIN 500 MG TABLET PO SCH ×2 (09:45→16:41)
[2022-01-20] MEDS: INSULIN REGULAR 100 UNIT/ML SUBCUT SCH ×4 (09:45→21:23)
[2022-01-20] MEDS: SODIUM HYPOCHLORITE 0.25% IRRIG 473 ML BOTTLE TOP SCH (10:34)
[2022-01-20] MEDS: TRIAMCINOLONE 0.1% CREAM 15 GM TUBE TOP SCH ×3 (10:36→21:31)
[2022-01-20] MEDS: diphenhydrAMINE CAP 25 MG CAPSULE PO PRN (15:23)
[2022-01-20] MEDS: SERTRALINE 50 MG TABLET PO SCH (21:22)
[2022-01-20] MEDS: ZALEPLON 5 MG CAPSULE PO PRN (21:22)
[2022-01-21] MEDS: HYDROmorphone 1 MG/1 ML SYRINGE IV PRN ×8 (02:04→23:41)
[2022-01-21 05:03] LABS: Basophils # 0.1 10*3/uL (0.0-0.2); Basophils % 0.6 % (0.0-0.8); Eosinophils # 0.2 10*3/uL (0.0-0.87); Eosinophils % 1.7 % (0.00-10.9); Hematocrit 28.7 VOL% (42.0-52.0); Hemoglobin 9.1 GM/DL (14.0-18.0); Immature Granulocytes % 0.8 %; Immature Granulocytes Absolute 0.08 #; Lymphocytes # 1.5 10*3/uL (1.4-4.0); Mean Corpuscular HGB Conc 31.7 GM/DL (32-36); Mean Corpuscular Volume 92.3 FL (87-102); Monocytes # 0.5 10*3/uL (0.11-0.8); Monocytes % 5.3 % (1.7-12.7); Neutrophils % 76.6 % (38.7-73.9); Platelet Count 369 T/CUMM (130-400); Red Blood Count 3.11 MC/CUMM (3.8-5.5); Red Cell Distribution Width 13.2 % (9.3-17.3); White Blood Count 10.2 T/CUMM (4-12)
[2022-01-21 05:23] LABS: Calcium 7.8 MG/DL (8.5-10.1); Osmolality,Calculated 281.3 MOS/KG (273-304); Potassium 4.3 MMOL/L (3.5-5.1)
[2022-01-21] MEDS: INSULIN REGULAR 100 UNIT/ML SUBCUT SCH ×4 (09:00→22:06)
[2022-01-21] MEDS: HEPARIN 5,000 UNIT/1 ML VIAL SUBCUT SCH ×2 (10:22→20:45)
[2022-01-21] MEDS: BISACODYL 5 MG TABLET PO SCH (10:22)
[2022-01-21] MEDS: metFORMIN 500 MG TABLET PO SCH ×2 (10:22→18:29)
[2022-01-21] MEDS: POTASSIUM BICARB EFFERVESCENT 20 MEQ TAB.EFF PO SCH ×2 (10:23→20:45)
[2022-01-21] MEDS: METOPROLOL TARTRATE 25 MG TABLET PO SCH ×2 (10:23→20:44)
[2022-01-21] MEDS: INSULIN GLARGINE 100 UNIT/ML SUBCUT SCH (10:23)
[2022-01-21] MEDS: TRIAMCINOLONE 0.1% CREAM 15 GM TUBE TOP SCH ×2 (10:23→20:45)
[2022-01-21] MEDS: lisinopriL 20 MG TABLET PO SCH (10:25)
[2022-01-21] MEDS: MAGNESIUM OXIDE 400 MG TABLET PO SCH ×2 (10:25→20:45)
[2022-01-21] MEDS: cefTRIAXone 1,000 MG in SODIUM CHLORIDE 0.9% 100 ML IV SCH (10:25)
[2022-01-21] MEDS: PANTOPRAZOLE 40 MG TABLET PO SCH (10:26)
[2022-01-21] MEDS: SODIUM HYPOCHLORITE 0.25% IRRIG 473 ML BOTTLE TOP SCH (14:17)
[2022-01-21] MEDS: MELATONIN 3 MG TABLET PO PRN (20:44)
[2022-01-21] MEDS: SERTRALINE 50 MG TABLET PO SCH (20:44)
[2022-01-21] MEDS: ZALEPLON 5 MG CAPSULE PO PRN (20:45)
[2022-01-22] MEDS: HYDROmorphone 1 MG/1 ML SYRINGE IV PRN ×9 (02:12→22:32)
[2022-01-22] MEDS: PANTOPRAZOLE 40 MG TABLET PO SCH (09:33)
[2022-01-22] MEDS: metFORMIN 500 MG TABLET PO SCH ×2 (09:33→16:16)
[2022-01-22] MEDS: MAGNESIUM OXIDE 400 MG TABLET PO SCH ×2 (09:33→21:03)
[2022-01-22] MEDS: POTASSIUM BICARB EFFERVESCENT 20 MEQ TAB.EFF PO SCH ×2 (09:33→21:04)
[2022-01-22] MEDS: BISACODYL 5 MG TABLET PO SCH (09:33)
[2022-01-22] MEDS: HEPARIN 5,000 UNIT/1 ML VIAL SUBCUT SCH ×2 (09:33→21:04)
[2022-01-22] MEDS: lisinopriL 20 MG TABLET PO SCH (09:33)
[2022-01-22] MEDS: METOPROLOL TARTRATE 25 MG TABLET PO SCH ×2 (09:33→21:02)
[2022-01-22] MEDS: INSULIN REGULAR 100 UNIT/ML SUBCUT SCH ×4 (09:34→21:05)
[2022-01-22] MEDS: INSULIN GLARGINE 100 UNIT/ML SUBCUT SCH ×2 (09:34→12:35)
[2022-01-22] MEDS: fentaNYL 50 MCG/HR PATCH TRANSDERM SCH (09:35)
[2022-01-22] MEDS: SODIUM HYPOCHLORITE 0.25% IRRIG 473 ML BOTTLE TOP SCH (09:35)
[2022-01-22] MEDS: cefTRIAXone 1,000 MG in SODIUM CHLORIDE 0.9% 100 ML IV SCH (09:37)
[2022-01-22] MEDS: TRIAMCINOLONE 0.1% CREAM 15 GM TUBE TOP SCH (11:38)
[2022-01-22] MEDS: fentaNYL 75 MCG/HR PATCH TRANSDERM SCH (16:18)
[2022-01-22] MEDS: SERTRALINE 50 MG TABLET PO SCH (22:36)
[2022-01-23] MEDS: HYDROmorphone 1 MG/1 ML SYRINGE IV PRN ×8 (01:58→23:23)
[2022-01-23] MEDS: TRIAMCINOLONE 0.1% CREAM 15 GM TUBE TOP SCH ×3 (02:03→22:10)
[2022-01-23 05:33] LABS: Basophils # 0.1 10*3/uL (0.0-0.2); Basophils % 0.6 % (0.0-0.8); Eosinophils # 0.2 10*3/uL (0.0-0.87); Eosinophils % 1.7 % (0.00-10.9); Hematocrit 30.5 VOL% (42.0-52.0); Hemoglobin 9.6 GM/DL (14.0-18.0); Immature Granulocytes % 0.7 %; Immature Granulocytes Absolute 0.07 #; Lymphocytes # 1.9 10*3/uL (1.4-4.0); Lymphocytes % 18.4 % (21.2-54.2); Mean Corpuscular HGB Conc 31.5 GM/DL (32-36); Mean Corpuscular Volume 92.7 FL (87-102); Mean Platelet Volume 8.8 FL (9.6-12.0); Monocytes # 0.7 10*3/uL (0.11-0.8); Monocytes % 6.4 % (1.7-12.7); Neutrophils % 72.2 % (38.7-73.9); Platelet Count 349 T/CUMM (130-400); Red Blood Count 3.29 MC/CUMM (3.8-5.5); Red Cell Distribution Width 13.2 % (9.3-17.3); White Blood Count 10.4 T/CUMM (4-12)
[2022-01-23 05:52] LABS: Calcium 8.2 MG/DL (8.5-10.1); Osmolality,Calculated 273.8 MOS/KG (273-304)
[2022-01-23] MEDS: SODIUM HYPOCHLORITE 0.25% IRRIG 473 ML BOTTLE TOP SCH (10:36)
[2022-01-23] MEDS: HEPARIN 5,000 UNIT/1 ML VIAL SUBCUT SCH ×2 (10:36→22:07)
[2022-01-23] MEDS: INSULIN REGULAR 100 UNIT/ML SUBCUT SCH ×4 (10:36→22:08)
[2022-01-23] MEDS: BISACODYL 5 MG TABLET PO SCH (10:36)
[2022-01-23] MEDS: metFORMIN 500 MG TABLET PO SCH ×2 (10:36→17:55)
[2022-01-23] MEDS: METOPROLOL TARTRATE 25 MG TABLET PO SCH ×2 (10:37→22:09)
[2022-01-23] MEDS: PANTOPRAZOLE 40 MG TABLET PO SCH (10:37)
[2022-01-23] MEDS: INSULIN GLARGINE 100 UNIT/ML SUBCUT SCH (10:37)
[2022-01-23] MEDS: lisinopriL 20 MG TABLET PO SCH (10:37)
[2022-01-23] MEDS: MAGNESIUM OXIDE 400 MG TABLET PO SCH ×2 (10:37→22:09)
[2022-01-23] MEDS: POTASSIUM BICARB EFFERVESCENT 20 MEQ TAB.EFF PO SCH ×2 (10:37→22:09)
[2022-01-23] MEDS: cefTRIAXone 1,000 MG in SODIUM CHLORIDE 0.9% 100 ML IV SCH (12:21)
[2022-01-23] MEDS: ZALEPLON 5 MG CAPSULE PO PRN (22:09)
[2022-01-23] MEDS: SERTRALINE 50 MG TABLET PO SCH (22:09)
[2022-01-24] MEDS: HYDROmorphone 1 MG/1 ML SYRINGE IV PRN ×4 (02:04→09:05)
[2022-01-24] MEDS: diphenhydrAMINE CAP 25 MG CAPSULE PO PRN (04:12)
[2022-01-24 05:39] LABS: Basophils # 0.1 10*3/uL (0.0-0.2); Basophils % 0.6 % (0.0-0.8); Eosinophils # 0.2 10*3/uL (0.0-0.87); Eosinophils % 2.4 % (0.00-10.9); Hematocrit 28.3 VOL% (42.0-52.0); Immature Granulocytes % 0.5 %; Immature Granulocytes Absolute 0.05 #; Lymphocytes # 1.3 10*3/uL (1.4-4.0); Lymphocytes % 13.6 % (21.2-54.2); Mean Corpuscular HGB Conc 31.8 GM/DL (32-36); Mean Corpuscular Volume 92.2 FL (87-102); Mean Platelet Volume 9.2 FL (9.6-12.0); Monocytes # 0.7 10*3/uL (0.11-0.8); Monocytes % 7.2 % (1.7-12.7); Neutrophils % 75.7 % (38.7-73.9); Platelet Count 347 T/CUMM (130-400); Red Blood Count 3.07 MC/CUMM (3.8-5.5); Red Cell Distribution Width 13.5 % (9.3-17.3); White Blood Count 9.6 T/CUMM (4-12)
[2022-01-24 05:58] LABS: Calcium 8.6 MG/DL (8.5-10.1); Osmolality,Calculated 280.3 MOS/KG (273-304)
[2022-01-24] MEDS: INSULIN REGULAR 100 UNIT/ML SUBCUT SCH ×4 (08:45→21:17)
[2022-01-24] MEDS: cefTRIAXone 1,000 MG in SODIUM CHLORIDE 0.9% 100 ML IV SCH (10:39)
[2022-01-24] MEDS: METOPROLOL TARTRATE 25 MG TABLET PO SCH ×2 (10:40→21:16)
[2022-01-24] MEDS: MAGNESIUM OXIDE 400 MG TABLET PO SCH ×2 (10:40→21:17)
[2022-01-24] MEDS: lisinopriL 20 MG TABLET PO SCH (10:42)
[2022-01-24] MEDS: BISACODYL 5 MG TABLET PO SCH (10:42)
[2022-01-24] MEDS: INSULIN GLARGINE 100 UNIT/ML SUBCUT SCH (10:43)
[2022-01-24] MEDS: SODIUM HYPOCHLORITE 0.25% IRRIG 473 ML BOTTLE TOP SCH (10:43)
[2022-01-24] MEDS: PANTOPRAZOLE 40 MG TABLET PO SCH (10:43)
[2022-01-24] MEDS: POTASSIUM BICARB EFFERVESCENT 20 MEQ TAB.EFF PO SCH ×2 (10:44→21:15)
[2022-01-24] MEDS: HEPARIN 5,000 UNIT/1 ML VIAL SUBCUT SCH ×2 (10:44→21:17)
[2022-01-24] MEDS: metFORMIN 500 MG TABLET PO SCH ×2 (10:44→17:02)
[2022-01-24] MEDS: TRIAMCINOLONE 0.1% CREAM 15 GM TUBE TOP SCH ×2 (14:29→21:16)
[2022-01-24] MEDS: SERTRALINE 50 MG TABLET PO SCH (21:16)
[2022-01-25 05:47] LABS: Basophils # 0.1 10*3/uL (0.0-0.2); Basophils % 0.6 % (0.0-0.8); Eosinophils # 0.3 10*3/uL (0.0-0.87); Eosinophils % 3.1 % (0.00-10.9); Hematocrit 26.6 VOL% (42.0-52.0); Hemoglobin 8.7 GM/DL (14.0-18.0); Immature Granulocytes % 0.5 %; Immature Granulocytes Absolute 0.04 #; Lymphocytes # 1.3 10*3/uL (1.4-4.0); Lymphocytes % 14.8 % (21.2-54.2); Mean Corpuscular HGB Conc 32.7 GM/DL (32-36); Mean Corpuscular Volume 91.4 FL (87-102); Mean Platelet Volume 8.9 FL (9.6-12.0); Monocytes # 0.6 10*3/uL (0.11-0.8); Monocytes % 7.1 % (1.7-12.7); Neutrophils % 73.9 % (38.7-73.9); Platelet Count 300 T/CUMM (130-400); Red Blood Count 2.91 MC/CUMM (3.8-5.5); Red Cell Distribution Width 13.3 % (9.3-17.3); White Blood Count 8.4 T/CUMM (4-12)
[2022-01-25 06:02] LABS: Calcium 8.1 MG/DL (8.5-10.1); Osmolality,Calculated 280.4 MOS/KG (273-304)
[2022-01-25] MEDS: HEPARIN 5,000 UNIT/1 ML VIAL SUBCUT SCH ×2 (08:54→20:26)
[2022-01-25] MEDS: lisinopriL 20 MG TABLET PO SCH (08:56)
[2022-01-25] MEDS: INSULIN GLARGINE 100 UNIT/ML SUBCUT SCH (08:56)
[2022-01-25] MEDS: MAGNESIUM OXIDE 400 MG TABLET PO SCH ×2 (08:56→20:26)
[2022-01-25] MEDS: metFORMIN 500 MG TABLET PO SCH ×2 (08:56→17:18)
[2022-01-25] MEDS: PANTOPRAZOLE 40 MG TABLET PO SCH (08:57)
[2022-01-25] MEDS: BISACODYL 5 MG TABLET PO SCH (08:57)
[2022-01-25] MEDS: METOPROLOL TARTRATE 25 MG TABLET PO SCH ×2 (08:57→20:26)
[2022-01-25] MEDS: POTASSIUM BICARB EFFERVESCENT 20 MEQ TAB.EFF PO SCH ×2 (08:57→20:27)
[2022-01-25] MEDS: INSULIN REGULAR 100 UNIT/ML SUBCUT SCH ×4 (08:58→20:27)
[2022-01-25] MEDS: fentaNYL 75 MCG/HR PATCH TRANSDERM SCH (09:07)
[2022-01-25] MEDS: TRIAMCINOLONE 0.1% CREAM 15 GM TUBE TOP SCH ×2 (09:08→20:27)
[2022-01-25] MEDS: SODIUM HYPOCHLORITE 0.25% IRRIG 473 ML BOTTLE TOP SCH (09:08)
[2022-01-25] MEDS ORDERED: HYDROmorphone 1 MG/1 ML SYRINGE IV PRN (12:33)
[2022-01-25] MEDS: diphenhydrAMINE CAP 25 MG CAPSULE PO PRN (14:49)
[2022-01-25] MEDS: TAMSULOSIN 0.4 MG CAPSULE PO SCH (20:26)
[2022-01-25] MEDS: SERTRALINE 50 MG TABLET PO SCH (20:26)
[2022-01-26] MEDS: ERGOCALCIFEROL 50,000 UNIT CAPSULE PO SCH (06:06)
[2022-01-26] MEDS: PANTOPRAZOLE 40 MG TABLET PO SCH (09:10)
[2022-01-26] MEDS: TAMSULOSIN 0.4 MG CAPSULE PO SCH (09:10)
[2022-01-26] MEDS: METOPROLOL TARTRATE 25 MG TABLET PO SCH ×2 (09:10→21:49)
[2022-01-26] MEDS: POTASSIUM BICARB EFFERVESCENT 20 MEQ TAB.EFF PO SCH ×2 (09:10→21:49)
[2022-01-26] MEDS: metFORMIN 500 MG TABLET PO SCH ×2 (09:10→17:18)
[2022-01-26] MEDS: BISACODYL 5 MG TABLET PO SCH (09:10)
[2022-01-26] MEDS: TRIAMCINOLONE 0.1% CREAM 15 GM TUBE TOP SCH ×2 (09:11→21:49)
[2022-01-26] MEDS: INSULIN GLARGINE 100 UNIT/ML SUBCUT SCH (09:11)
[2022-01-26] MEDS: SODIUM HYPOCHLORITE 0.25% IRRIG 473 ML BOTTLE TOP SCH (09:11)
[2022-01-26] MEDS: lisinopriL 20 MG TABLET PO SCH (09:11)
[2022-01-26] MEDS: HEPARIN 5,000 UNIT/1 ML VIAL SUBCUT SCH ×2 (09:11→21:49)
[2022-01-26] MEDS: MAGNESIUM OXIDE 400 MG TABLET PO SCH ×2 (09:11→21:49)
[2022-01-26] MEDS: INSULIN REGULAR 100 UNIT/ML SUBCUT SCH ×4 (09:12→20:51)
[2022-01-26] MEDS ORDERED: HYDROmorphone 1 MG/1 ML SYRINGE IV ONE (11:17)
[2022-01-26] MEDS: SERTRALINE 50 MG TABLET PO SCH (21:49)
[2022-01-27 04:12] LABS: Basophils % 0.6 % (0.0-0.8); Eosinophils # 0.3 10*3/uL (0.0-0.87); Eosinophils % 3.8 % (0.00-10.9); Hematocrit 25.4 VOL% (42.0-52.0); Hemoglobin 8.1 GM/DL (14.0-18.0); Immature Granulocytes % 0.6 %; Immature Granulocytes Absolute 0.04 #; Lymphocytes # 1.4 10*3/uL (1.4-4.0); Lymphocytes % 20.8 % (21.2-54.2); Mean Corpuscular HGB Conc 31.9 GM/DL (32-36); Mean Corpuscular Volume 91.7 FL (87-102); Mean Platelet Volume 9.3 FL (9.6-12.0); Monocytes # 0.6 10*3/uL (0.11-0.8); Monocytes % 9.4 % (1.7-12.7); Neutrophils % 64.8 % (38.7-73.9); Platelet Count 295 T/CUMM (130-400); Red Blood Count 2.77 MC/CUMM (3.8-5.5); Red Cell Distribution Width 13.3 % (9.3-17.3); White Blood Count 6.8 T/CUMM (4-12)
[2022-01-27 04:30] LABS: Calcium 8.4 MG/DL (8.5-10.1); Osmolality,Calculated 282.5 MOS/KG (273-304); Potassium 4.3 MMOL/L (3.5-5.1)
[2022-01-27] MEDS: METOPROLOL TARTRATE 25 MG TABLET PO SCH ×2 (10:26→20:50)
[2022-01-27] MEDS: lisinopriL 20 MG TABLET PO SCH (10:26)
[2022-01-27] MEDS: TAMSULOSIN 0.4 MG CAPSULE PO SCH (10:26)
[2022-01-27] MEDS: BISACODYL 5 MG TABLET PO SCH (10:26)
[2022-01-27] MEDS: POTASSIUM BICARB EFFERVESCENT 20 MEQ TAB.EFF PO SCH ×2 (10:27→20:50)
[2022-01-27] MEDS: PANTOPRAZOLE 40 MG TABLET PO SCH (10:27)
[2022-01-27] MEDS: MAGNESIUM OXIDE 400 MG TABLET PO SCH ×2 (10:27→20:50)
[2022-01-27] MEDS: metFORMIN 500 MG TABLET PO SCH ×2 (10:27→16:31)
[2022-01-27] MEDS: HEPARIN 5,000 UNIT/1 ML VIAL SUBCUT SCH ×2 (10:27→20:50)
[2022-01-27] MEDS: INSULIN GLARGINE 100 UNIT/ML SUBCUT SCH (10:29)
[2022-01-27] MEDS: SODIUM HYPOCHLORITE 0.25% IRRIG 473 ML BOTTLE TOP SCH (10:31)
[2022-01-27] MEDS: INSULIN REGULAR 100 UNIT/ML SUBCUT SCH ×4 (10:32→21:40)
[2022-01-27] MEDS: TRIAMCINOLONE 0.1% CREAM 15 GM TUBE TOP SCH ×2 (10:32→21:41)
[2022-01-27] MEDS: oxyCODONE/ACETAMINOPHEN 5-325 MG TABLET PO PRN (18:30)
[2022-01-27] MEDS: SERTRALINE 50 MG TABLET PO SCH (20:50)
[2022-01-28] MEDS: metFORMIN 500 MG TABLET PO SCH ×2 (08:37→19:24)
[2022-01-28] MEDS: fentaNYL 75 MCG/HR PATCH TRANSDERM SCH (08:37)
[2022-01-28] MEDS: lisinopriL 20 MG TABLET PO SCH (08:37)
[2022-01-28] MEDS: METOPROLOL TARTRATE 25 MG TABLET PO SCH ×2 (08:38→21:22)
[2022-01-28] MEDS: PANTOPRAZOLE 40 MG TABLET PO SCH (08:38)
[2022-01-28] MEDS: POTASSIUM BICARB EFFERVESCENT 20 MEQ TAB.EFF PO SCH ×2 (08:38→21:22)
[2022-01-28] MEDS: BISACODYL 5 MG TABLET PO SCH (08:38)
[2022-01-28] MEDS: TAMSULOSIN 0.4 MG CAPSULE PO SCH (08:38)
[2022-01-28] MEDS: MAGNESIUM OXIDE 400 MG TABLET PO SCH ×2 (08:38→21:23)
[2022-01-28] MEDS: HEPARIN 5,000 UNIT/1 ML VIAL SUBCUT SCH ×2 (08:39→21:22)
[2022-01-28] MEDS: TRIAMCINOLONE 0.1% CREAM 15 GM TUBE TOP SCH ×2 (08:39→22:30)
[2022-01-28] MEDS: INSULIN GLARGINE 100 UNIT/ML SUBCUT SCH (10:26)
[2022-01-28] MEDS: INSULIN REGULAR 100 UNIT/ML SUBCUT SCH ×4 (10:27→22:31)
[2022-01-28] MEDS: oxyCODONE/ACETAMINOPHEN 5-325 MG TABLET PO PRN ×2 (10:38→19:25)
[2022-01-28] MEDS: SODIUM HYPOCHLORITE 0.25% IRRIG 473 ML BOTTLE TOP SCH (12:40)
[2022-01-28] MEDS: SERTRALINE 50 MG TABLET PO SCH (21:23)
[2022-01-29] MEDS: oxyCODONE/ACETAMINOPHEN 5-325 MG TABLET PO PRN ×3 (04:14→22:37)
[2022-01-29 05:52] LABS: Basophils # 0.1 10*3/uL (0.0-0.2); Basophils % 0.7 % (0.0-0.8); Eosinophils # 0.3 10*3/uL (0.0-0.87); Eosinophils % 4.2 % (0.00-10.9); Hematocrit 27.1 VOL% (42.0-52.0); Hemoglobin 8.6 GM/DL (14.0-18.0); Immature Granulocytes % 0.4 %; Immature Granulocytes Absolute 0.03 #; Lymphocytes # 1.3 10*3/uL (1.4-4.0); Lymphocytes % 19.6 % (21.2-54.2); Mean Corpuscular HGB Conc 31.7 GM/DL (32-36); Mean Corpuscular Volume 92.5 FL (87-102); Mean Platelet Volume 9.3 FL (9.6-12.0); Monocytes # 0.5 10*3/uL (0.11-0.8); Neutrophils % 67.1 % (38.7-73.9); Platelet Count 313 T/CUMM (130-400); Red Blood Count 2.93 MC/CUMM (3.8-5.5); Red Cell Distribution Width 13.3 % (9.3-17.3); White Blood Count 6.7 T/CUMM (4-12)
[2022-01-29 06:20] LABS: Calcium 8.9 MG/DL (8.5-10.1); Osmolality,Calculated 278.7 MOS/KG (273-304); Potassium 4.2 MMOL/L (3.5-5.1)
[2022-01-29] MEDS: lisinopriL 20 MG TABLET PO SCH (09:59)
[2022-01-29] MEDS: PANTOPRAZOLE 40 MG TABLET PO SCH (09:59)
[2022-01-29] MEDS: MAGNESIUM OXIDE 400 MG TABLET PO SCH ×2 (09:59→22:27)
[2022-01-29] MEDS: TAMSULOSIN 0.4 MG CAPSULE PO SCH (09:59)
[2022-01-29] MEDS: METOPROLOL TARTRATE 25 MG TABLET PO SCH ×2 (10:00→22:26)
[2022-01-29] MEDS: HEPARIN 5,000 UNIT/1 ML VIAL SUBCUT SCH ×2 (10:00→22:27)
[2022-01-29] MEDS: BISACODYL 5 MG TABLET PO SCH (10:00)
[2022-01-29] MEDS: metFORMIN 500 MG TABLET PO SCH ×2 (10:00→17:37)
[2022-01-29] MEDS: POTASSIUM BICARB EFFERVESCENT 20 MEQ TAB.EFF PO SCH ×2 (10:01→22:26)
[2022-01-29] MEDS: INSULIN REGULAR 100 UNIT/ML SUBCUT SCH ×4 (10:01→22:28)
[2022-01-29] MEDS: INSULIN GLARGINE 100 UNIT/ML SUBCUT SCH (10:01)
[2022-01-29] MEDS: TRIAMCINOLONE 0.1% CREAM 15 GM TUBE TOP SCH ×2 (10:13→22:28)
[2022-01-29] MEDS: SIMETHICONE CHEW 125 MG TABLET PO PRN ×2 (12:22→17:57)
[2022-01-29] MEDS: SODIUM HYPOCHLORITE 0.25% IRRIG 473 ML BOTTLE TOP SCH (16:00)
[2022-01-29] MEDS: MELATONIN 3 MG TABLET PO PRN (22:26)
[2022-01-29] MEDS: SERTRALINE 50 MG TABLET PO SCH (22:27)
[2022-01-30] MEDS: INSULIN REGULAR 100 UNIT/ML SUBCUT SCH ×4 (08:02→20:00)
[2022-01-30] MEDS: metFORMIN 500 MG TABLET PO SCH ×2 (10:20→16:20)
[2022-01-30] MEDS: PANTOPRAZOLE 40 MG TABLET PO SCH (10:21)
[2022-01-30] MEDS: lisinopriL 20 MG TABLET PO SCH (10:21)
[2022-01-30] MEDS: POTASSIUM BICARB EFFERVESCENT 20 MEQ TAB.EFF PO SCH ×2 (10:21→20:00)
[2022-01-30] MEDS: METOPROLOL TARTRATE 25 MG TABLET PO SCH ×2 (10:21→20:00)
[2022-01-30] MEDS: TAMSULOSIN 0.4 MG CAPSULE PO SCH (10:21)
[2022-01-30] MEDS: MAGNESIUM OXIDE 400 MG TABLET PO SCH ×2 (10:22→20:00)
[2022-01-30] MEDS: BISACODYL 5 MG TABLET PO SCH (10:22)
[2022-01-30] MEDS: INSULIN GLARGINE 100 UNIT/ML SUBCUT SCH (10:23)
[2022-01-30] MEDS: HEPARIN 5,000 UNIT/1 ML VIAL SUBCUT SCH ×2 (10:23→20:00)
[2022-01-30] MEDS: oxyCODONE/ACETAMINOPHEN 5-325 MG TABLET PO PRN (12:37)
[2022-01-30] MEDS: TRIAMCINOLONE 0.1% CREAM 15 GM TUBE TOP SCH ×2 (13:30→20:00)
[2022-01-30] MEDS: SODIUM HYPOCHLORITE 0.25% IRRIG 473 ML BOTTLE TOP SCH (13:30)
[2022-01-30] MEDS: SERTRALINE 50 MG TABLET PO SCH (20:00)
[2022-01-30] MEDS: MELATONIN 3 MG TABLET PO PRN (21:45)
[2022-01-31] MEDS: oxyCODONE/ACETAMINOPHEN 5-325 MG TABLET PO PRN ×4 (00:10→22:16)
[2022-01-31 04:53] LABS: Basophils # 0.1 10*3/uL (0.0-0.2); Basophils % 0.6 % (0.0-0.8); Eosinophils # 0.3 10*3/uL (0.0-0.87); Eosinophils % 3.8 % (0.00-10.9); Hematocrit 28.2 VOL% (42.0-52.0); Hemoglobin 9.2 GM/DL (14.0-18.0); Immature Granulocytes % 0.8 %; Immature Granulocytes Absolute 0.06 #; Lymphocytes # 1.6 10*3/uL (1.4-4.0); Lymphocytes % 20.4 % (21.2-54.2); Mean Corpuscular HGB Conc 32.6 GM/DL (32-36); Mean Corpuscular Volume 89.5 FL (87-102); Mean Platelet Volume 10.3 FL (9.6-12.0); Monocytes # 0.6 10*3/uL (0.11-0.8); Neutrophils % 67.4 % (38.7-73.9); Platelet Count 304 T/CUMM (130-400); Red Blood Count 3.15 MC/CUMM (3.8-5.5); Red Cell Distribution Width 14.1 % (9.3-17.3)
[2022-01-31 05:15] LABS: Calcium 8.4 MG/DL (8.5-10.1); Osmolality,Calculated 270.1 MOS/KG (273-304); Potassium 4.1 MMOL/L (3.5-5.1)
[2022-01-31] MEDS: TAMSULOSIN 0.4 MG CAPSULE PO SCH (10:09)
[2022-01-31] MEDS: lisinopriL 20 MG TABLET PO SCH (10:09)
[2022-01-31] MEDS: metFORMIN 500 MG TABLET PO SCH ×2 (10:09→18:10)
[2022-01-31] MEDS: METOPROLOL TARTRATE 25 MG TABLET PO SCH ×2 (10:09→21:18)
[2022-01-31] MEDS: POTASSIUM BICARB EFFERVESCENT 20 MEQ TAB.EFF PO SCH ×2 (10:09→21:18)
[2022-01-31] MEDS: MAGNESIUM OXIDE 400 MG TABLET PO SCH ×2 (10:10→21:19)
[2022-01-31] MEDS: PANTOPRAZOLE 40 MG TABLET PO SCH (10:10)
[2022-01-31] MEDS: HEPARIN 5,000 UNIT/1 ML VIAL SUBCUT SCH ×2 (10:10→21:19)
[2022-01-31] MEDS: INSULIN GLARGINE 100 UNIT/ML SUBCUT SCH (10:11)
[2022-01-31] MEDS: TRIAMCINOLONE 0.1% CREAM 15 GM TUBE TOP SCH ×2 (10:15→21:20)
[2022-01-31] MEDS: SODIUM HYPOCHLORITE 0.25% IRRIG 473 ML BOTTLE TOP SCH (10:15)
[2022-01-31] MEDS: BISACODYL 5 MG TABLET PO SCH (10:15)
[2022-01-31] MEDS: INSULIN REGULAR 100 UNIT/ML SUBCUT SCH ×4 (10:16→21:19)
[2022-01-31] MEDS: SERTRALINE 50 MG TABLET PO SCH (21:18)
[2022-02-01 05:02] LABS: Basophils # 0.1 10*3/uL (0.0-0.2); Basophils % 0.6 % (0.0-0.8); Eosinophils # 0.3 10*3/uL (0.0-0.87); Eosinophils % 3.9 % (0.00-10.9); Hematocrit 27.2 VOL% (42.0-52.0); Hemoglobin 8.6 GM/DL (14.0-18.0); Immature Granulocytes % 0.7 %; Immature Granulocytes Absolute 0.06 #; Lymphocytes # 1.5 10*3/uL (1.4-4.0); Lymphocytes % 17.1 % (21.2-54.2); Mean Corpuscular HGB Conc 31.6 GM/DL (32-36); Mean Corpuscular Volume 91.6 FL (87-102); Mean Platelet Volume 8.9 FL (9.6-12.0); Monocytes # 0.7 10*3/uL (0.11-0.8); Monocytes % 7.7 % (1.7-12.7); Platelet Count 362 T/CUMM (130-400); Red Blood Count 2.97 MC/CUMM (3.8-5.5); White Blood Count 8.7 T/CUMM (4-12)
[2022-02-01 05:20] LABS: Calcium 8.3 MG/DL (8.5-10.1); Osmolality,Calculated 277.5 MOS/KG (273-304); Potassium 4.1 MMOL/L (3.5-5.1)
[2022-02-01] MEDS: INSULIN GLARGINE 100 UNIT/ML SUBCUT SCH (08:50)
[2022-02-01] MEDS: HEPARIN 5,000 UNIT/1 ML VIAL SUBCUT SCH ×2 (08:50→20:25)
[2022-02-01] MEDS: metFORMIN 500 MG TABLET PO SCH ×2 (08:50→16:46)
[2022-02-01] MEDS: MAGNESIUM OXIDE 400 MG TABLET PO SCH ×2 (08:50→20:24)
[2022-02-01] MEDS: TAMSULOSIN 0.4 MG CAPSULE PO SCH ×2 (08:51→20:24)
[2022-02-01] MEDS: METOPROLOL TARTRATE 25 MG TABLET PO SCH ×2 (08:51→20:24)
[2022-02-01] MEDS: lisinopriL 20 MG TABLET PO SCH (08:51)
[2022-02-01] MEDS: PANTOPRAZOLE 40 MG TABLET PO SCH (08:51)
[2022-02-01] MEDS: POTASSIUM BICARB EFFERVESCENT 20 MEQ TAB.EFF PO SCH ×2 (08:51→20:23)
[2022-02-01] MEDS: INSULIN REGULAR 100 UNIT/ML SUBCUT SCH ×4 (08:52→21:39)
[2022-02-01] MEDS: oxyCODONE/ACETAMINOPHEN 5-325 MG TABLET PO PRN ×2 (09:34→20:25)
[2022-02-01] MEDS: BISACODYL 5 MG TABLET PO SCH (09:35)
[2022-02-01] MEDS: TRIAMCINOLONE 0.1% CREAM 15 GM TUBE TOP SCH ×2 (10:15→20:26)
[2022-02-01] MEDS: SODIUM HYPOCHLORITE 0.25% IRRIG 473 ML BOTTLE TOP SCH (10:15)
[2022-02-01] MEDS: SIMETHICONE CHEW 125 MG TABLET PO PRN (14:28)
[2022-02-01] MEDS: SERTRALINE 50 MG TABLET PO SCH (20:24)
[2022-02-02 05:06] LABS: Basophils # 0.1 10*3/uL (0.0-0.2); Basophils % 0.7 % (0.0-0.8); Eosinophils # 0.3 10*3/uL (0.0-0.87); Eosinophils % 3.4 % (0.00-10.9); Hematocrit 26.3 VOL% (42.0-52.0); Hemoglobin 8.4 GM/DL (14.0-18.0); Immature Granulocytes % 0.8 %; Immature Granulocytes Absolute 0.06 #; Lymphocytes # 1.4 10*3/uL (1.4-4.0); Lymphocytes % 18.3 % (21.2-54.2); Mean Corpuscular HGB Conc 31.9 GM/DL (32-36); Mean Corpuscular Volume 92.6 FL (87-102); Monocytes # 0.7 10*3/uL (0.11-0.8); Monocytes % 8.9 % (1.7-12.7); Neutrophils % 67.9 % (38.7-73.9); Platelet Count 309 T/CUMM (130-400); Red Blood Count 2.84 MC/CUMM (3.8-5.5); Red Cell Distribution Width 13.8 % (9.3-17.3); White Blood Count 7.6 T/CUMM (4-12)
[2022-02-02 05:39] LABS: Calcium 8.5 MG/DL (8.5-10.1); Osmolality,Calculated 277.8 MOS/KG (273-304); Potassium 4.1 MMOL/L (3.5-5.1)
[2022-02-02] MEDS: ERGOCALCIFEROL 50,000 UNIT CAPSULE PO SCH (06:25)
[2022-02-02] MEDS: oxyCODONE/ACETAMINOPHEN 5-325 MG TABLET PO PRN ×4 (07:59→22:06)
[2022-02-02] MEDS: TAMSULOSIN 0.4 MG CAPSULE PO SCH (09:26)
[2022-02-02] MEDS: metFORMIN 500 MG TABLET PO SCH ×2 (09:26→18:01)
[2022-02-02] MEDS: PANTOPRAZOLE 40 MG TABLET PO SCH (09:26)
[2022-02-02] MEDS: POTASSIUM BICARB EFFERVESCENT 20 MEQ TAB.EFF PO SCH ×2 (09:26→21:34)
[2022-02-02] MEDS: lisinopriL 20 MG TABLET PO SCH (09:26)
[2022-02-02] MEDS: MAGNESIUM OXIDE 400 MG TABLET PO SCH ×2 (09:26→21:34)
[2022-02-02] MEDS: METOPROLOL TARTRATE 25 MG TABLET PO SCH ×2 (09:26→21:35)
[2022-02-02] MEDS: HEPARIN 5,000 UNIT/1 ML VIAL SUBCUT SCH ×2 (09:27→21:42)
[2022-02-02] MEDS: INSULIN REGULAR 100 UNIT/ML SUBCUT SCH ×4 (09:27→21:44)
[2022-02-02] MEDS: INSULIN GLARGINE 100 UNIT/ML SUBCUT SCH (09:27)
[2022-02-02] MEDS: SODIUM HYPOCHLORITE 0.25% IRRIG 473 ML BOTTLE TOP SCH (09:40)
[2022-02-02] MEDS: TRIAMCINOLONE 0.1% CREAM 15 GM TUBE TOP SCH ×2 (09:40→21:44)
[2022-02-02] MEDS: BISACODYL 5 MG TABLET PO SCH (09:40)
[2022-02-02] MEDS: SERTRALINE 50 MG TABLET PO SCH (21:34)
[2022-02-02] MEDS: MELATONIN 3 MG TABLET PO PRN (21:34)
[2022-02-03] MEDS: METOPROLOL TARTRATE 25 MG TABLET PO SCH ×2 (08:29→21:30)
[2022-02-03] MEDS: lisinopriL 20 MG TABLET PO SCH (08:29)
[2022-02-03] MEDS: PANTOPRAZOLE 40 MG TABLET PO SCH (08:29)
[2022-02-03] MEDS: metFORMIN 500 MG TABLET PO SCH ×2 (08:29→16:43)
[2022-02-03] MEDS: POTASSIUM BICARB EFFERVESCENT 20 MEQ TAB.EFF PO SCH ×2 (08:29→21:37)
[2022-02-03] MEDS: TAMSULOSIN 0.4 MG CAPSULE PO SCH (08:29)
[2022-02-03] MEDS: MAGNESIUM OXIDE 400 MG TABLET PO SCH ×2 (08:29→21:29)
[2022-02-03] MEDS: INSULIN REGULAR 100 UNIT/ML SUBCUT SCH ×4 (08:30→21:28)
[2022-02-03] MEDS: INSULIN GLARGINE 100 UNIT/ML SUBCUT SCH (08:30)
[2022-02-03] MEDS: HEPARIN 5,000 UNIT/1 ML VIAL SUBCUT SCH ×2 (08:30→21:30)
[2022-02-03 08:54] LABS: Basophils # 0.1 10*3/uL (0.0-0.2); Basophils % 0.8 % (0.0-0.8); Eosinophils # 0.3 10*3/uL (0.0-0.87); Eosinophils % 4.1 % (0.00-10.9); Hematocrit 27.9 VOL% (42.0-52.0); Immature Granulocytes % 0.9 %; Immature Granulocytes Absolute 0.07 #; Lymphocytes # 1.4 10*3/uL (1.4-4.0); Lymphocytes % 17.4 % (21.2-54.2); Mean Corpuscular HGB Conc 32.3 GM/DL (32-36); Mean Corpuscular Volume 91.5 FL (87-102); Mean Platelet Volume 8.5 FL (9.6-12.0); Monocytes # 0.6 10*3/uL (0.11-0.8); Monocytes % 7.8 % (1.7-12.7); Platelet Count 362 T/CUMM (130-400); Red Blood Count 3.05 MC/CUMM (3.8-5.5); Red Cell Distribution Width 14.1 % (9.3-17.3)
[2022-02-03 09:10] LABS: Calcium 9.1 MG/DL (8.5-10.1); Osmolality,Calculated 278.8 MOS/KG (273-304); Potassium 4.1 MMOL/L (3.5-5.1)
[2022-02-03] MEDS: TRIAMCINOLONE 0.1% CREAM 15 GM TUBE TOP SCH ×2 (09:27→21:44)
[2022-02-03] MEDS: BISACODYL 5 MG TABLET PO SCH (09:27)
[2022-02-03] MEDS: oxyCODONE/ACETAMINOPHEN 5-325 MG TABLET PO PRN ×3 (10:20→23:37)
[2022-02-03] MEDS: SODIUM HYPOCHLORITE 0.25% IRRIG 473 ML BOTTLE TOP SCH (11:00)
[2022-02-03] MEDS: FINASTERIDE 5 MG TABLET PO SCH (14:12)
[2022-02-03] MEDS: SERTRALINE 50 MG TABLET PO SCH (21:28)
[2022-02-03] MEDS: MELATONIN 3 MG TABLET PO PRN (21:29)
[2022-02-04 05:08] LABS: Basophils # 0.1 10*3/uL (0.0-0.2); Basophils % 0.6 % (0.0-0.8); Eosinophils # 0.3 10*3/uL (0.0-0.87); Hematocrit 25.9 VOL% (42.0-52.0); Hemoglobin 8.3 GM/DL (14.0-18.0); Immature Granulocytes % 0.8 %; Immature Granulocytes Absolute 0.06 #; Lymphocytes # 1.4 10*3/uL (1.4-4.0); Lymphocytes % 16.9 % (21.2-54.2); Mean Corpuscular Volume 91.8 FL (87-102); Mean Platelet Volume 8.8 FL (9.6-12.0); Monocytes # 0.6 10*3/uL (0.11-0.8); Neutrophils % 69.7 % (38.7-73.9); Platelet Count 331 T/CUMM (130-400); Red Blood Count 2.82 MC/CUMM (3.8-5.5); Red Cell Distribution Width 14.4 % (9.3-17.3)
[2022-02-04 05:21] LABS: Calcium 8.8 MG/DL (8.5-10.1); Osmolality,Calculated 282.5 MOS/KG (273-304); Potassium 4.3 MMOL/L (3.5-5.1)
[2022-02-04] MEDS: FINASTERIDE 5 MG TABLET PO SCH (08:53)
[2022-02-04] MEDS: POTASSIUM BICARB EFFERVESCENT 20 MEQ TAB.EFF PO SCH (08:53)
[2022-02-04] MEDS: MAGNESIUM OXIDE 400 MG TABLET PO SCH (08:53)
[2022-02-04] MEDS: TAMSULOSIN 0.4 MG CAPSULE PO SCH (08:53)
[2022-02-04] MEDS: lisinopriL 20 MG TABLET PO SCH (08:53)
[2022-02-04] MEDS: METOPROLOL TARTRATE 25 MG TABLET PO SCH (08:54)
[2022-02-04] MEDS: PANTOPRAZOLE 40 MG TABLET PO SCH (08:54)
[2022-02-04] MEDS: INSULIN REGULAR 100 UNIT/ML SUBCUT SCH ×2 (08:54→12:11)
[2022-02-04] MEDS: metFORMIN 500 MG TABLET PO SCH (08:54)
[2022-02-04] MEDS: INSULIN GLARGINE 100 UNIT/ML SUBCUT SCH (08:55)
[2022-02-04] MEDS: HEPARIN 5,000 UNIT/1 ML VIAL SUBCUT SCH (08:55)
[2022-02-04] MEDS: BISACODYL 5 MG TABLET PO SCH (09:30)
[2022-02-04] MEDS ORDERED: oxyCODONE/ACETAMINOPHEN 5-325 MG TABLET PO PRN (10:07)
[2022-02-04] MEDS: SODIUM HYPOCHLORITE 0.25% IRRIG 473 ML BOTTLE TOP SCH (11:10)
[2022-02-04] MEDS: TRIAMCINOLONE 0.1% CREAM 15 GM TUBE TOP SCH (11:10)
[2022-02-04 11:53] VITALS: BP 117/68
== END 2022-02-04 14:16 | disposition home or self-care (01) | DRG 622 ==
LOC: N.ED 14:32 → SUATTDRO 21:26 → N.EDINP 21:26 → N.TELEN 23:25 → N.EDINP 23:25 → N.TELEN 01-26 16:40
PROVIDERS: ADMIT Family Medicine; ATTEND Internal Medicine

== ENCOUNTER 2022-05-17 05:51 | Inpatient (IN) ==
[2022-05-10 12:33] LABS: Osmolality,Calculated 285.4 MOS/KG (273-304); Potassium 4.3 MMOL/L (3.5-5.1)
[2022-05-10 12:42] LABS: Basophils # 0.1 10*3/uL (0.0-0.2); Basophils % 1.2 % (0.0-0.8); Eosinophils # 0.4 10*3/uL (0.0-0.87); Eosinophils % 5.6 % (0.00-10.9); Hematocrit 38.4 VOL% (42.0-52.0); Hemoglobin 12.8 GM/DL (14.0-18.0); Immature Granulocytes % 0.1 %; Immature Granulocytes Absolute 0.01 #; Lymphocytes # 1.7 10*3/uL (1.4-4.0); Lymphocytes % 22.8 % (21.2-54.2); Mean Corpuscular HGB Conc 33.3 GM/DL (32-36); Mean Corpuscular Volume 88.9 FL (87-102); Mean Platelet Volume 9.4 FL (9.6-12.0); Monocytes # 0.5 10*3/uL (0.11-0.8); Monocytes % 6.9 % (1.7-12.7); Neutrophils % 63.4 % (38.7-73.9); Platelet Count 239 T/CUMM (130-400); Red Blood Count 4.32 MC/CUMM (3.8-5.5); Red Cell Distribution Width 12.6 % (9.3-17.3); White Blood Count 7.3 T/CUMM (4-12)
[~2022-05-17 05:51] MED LIST: LACTATED RINGERS 1,000 ML IV SCH
[2022-05-17] MEDS ORDERED: PHENYLEPHRINE 1 MG/10 ML SYRINGE IV ONE (06:15)
[2022-05-17] MEDS ORDERED: LIDOCAINE 2% 5 ML VIAL ONE (06:15)
[2022-05-17] MEDS ORDERED: MIDAZOLAM 2 MG/2 ML VIAL ONE ×2 (06:15→07:14)
[2022-05-17] MEDS ORDERED: SEVOFLURANE 1 UNIT/15 MINUTE INH ONE (06:15)
[2022-05-17] MEDS ORDERED: ONDANSETRON 4 MG/2 ML VIAL ONE (06:15)
[2022-05-17] MEDS ORDERED: ROCURONIUM 50 MG/5 ML VIAL IV ONE (06:15)
[2022-05-17] MEDS ORDERED: propofoL 200 MG/20 ML VIAL IV ONE (06:15)
[2022-05-17] MEDS ORDERED: fentaNYL 250 MCG/5 ML VIAL ONE (06:16)
[2022-05-17] MEDS ORDERED: SCOPOLAMINE 1.5 MG PATCH TRANSDERM ONE (06:26)
[2022-05-17] MEDS ORDERED: DIAZEPAM 5 MG TABLET PO STA (06:40)
[2022-05-17] MEDS ORDERED: FAMOTIDINE 20 MG TABLET PO STA (06:40)
[2022-05-17] MEDS ORDERED: GABAPENTIN 400 MG CAPSULE PO STA (06:41)
[2022-05-17] MEDS ORDERED: ACETAMINOPHEN 500 MG TABLET ONE (06:45)
[2022-05-17] MEDS ORDERED: ACETAMINOPHEN 500 MG TABLET PO STA (06:46)
[2022-05-17] MEDS ORDERED: ROPIVACAINE 0.5% 30 ML VIAL ONE ×2 (06:47→06:53)
[2022-05-17] MEDS ORDERED: LIDOCAINE 1% 5 ML VIAL ONE (06:53)
[2022-05-17] MEDS ORDERED: DEXAMETHASONE 4 MG/1 ML VIAL ONE (06:53)
[2022-05-17] MEDS ORDERED: ePHEDrine 50 MG/ML VIAL ONE (08:06)
[2022-05-17] MEDS ORDERED: LACTATED RINGERS 1,000 ML IV ONE (08:30)
[2022-05-17] MEDS ORDERED: SUGAMMADEX 200 MG/2 ML VIAL IV ONE (08:47)
[2022-05-17] MEDS ORDERED: ACETAMINOPHEN 325 MG TABLET PO PRN (09:01)
[2022-05-17] MEDS ORDERED: BISACODYL 5 MG TABLET PO PRN ×2 (09:01)
[2022-05-17] MEDS ORDERED: ONDANSETRON 4 MG/2 ML VIAL IV PRN (09:01)
[2022-05-17] MEDS: INSULIN LISPRO 100 UNIT/ML SUBCUT SCH (21:04)
[2022-05-18] MEDS ORDERED: ENOXAPARIN 40 MG/0.4 ML SYRINGE SUBCUT SCH (05:00)
[2022-05-18 05:23] LABS: Basophils % 0.5 % (0.0-0.8); Eosinophils # 0.2 10*3/uL (0.0-0.87); Eosinophils % 2.1 % (0.00-10.9); Hematocrit 33.5 VOL% (42.0-52.0); Hemoglobin 11.1 GM/DL (14.0-18.0); Immature Granulocytes % 0.4 %; Immature Granulocytes Absolute 0.03 #; Lymphocytes # 1.7 10*3/uL (1.4-4.0); Lymphocytes % 20.5 % (21.2-54.2); Mean Corpuscular HGB Conc 33.1 GM/DL (32-36); Mean Corpuscular Volume 90.1 FL (87-102); Mean Platelet Volume 8.9 FL (9.6-12.0); Monocytes # 0.7 10*3/uL (0.11-0.8); Neutrophils % 68.5 % (38.7-73.9); Platelet Count 211 T/CUMM (130-400); Red Blood Count 3.72 MC/CUMM (3.8-5.5); Red Cell Distribution Width 13.1 % (9.3-17.3); White Blood Count 8.2 T/CUMM (4-12)
[2022-05-18 05:41] LABS: Alanine Aminotransferase 21 U/L (16-61); Albumin 3.4 G/DL (3.4-5.0); Alkaline Phosphatase 53 U/L (45-117); Aspartate Amino Transferase 8 U/L (0-37); Bilirubin,Total < 0.39 MG/DL (0.20-1.00); Blood Urea Nitrogen 14 MG/DL (7-18); Calcium 8.8 MG/DL (8.5-10.1); Carbon Dioxide 26 MMOL/L (21-32); Chloride 109 MMOL/L (98-107); Glucose 149 MG/DL (74-106); Osmolality,Calculated 284.3 MOS/KG (273-304); Potassium 3.5 MMOL/L (3.5-5.1); Sodium 141 MMOL/L (136-145); Total Protein 7.1 G/DL (6.4-8.2)
[2022-05-18] MEDS: INSULIN LISPRO 100 UNIT/ML SUBCUT SCH ×2 (08:10→11:23)
[2022-05-18] MEDS ORDERED: PANTOPRAZOLE 40 MG TABLET PO SCH (09:00)
[2022-05-18 11:52] VITALS: BP 139/89
== END 2022-05-18 14:00 | disposition home health service (06) | DRG 331 ==
LOC: N.SDSINP 05:51 → N.3E 10:01
PROVIDERS: ADMIT Surgery; ATTEND Surgery